=== PATIENT | female | born 1960 | race Caucasian/White ===

== ENCOUNTER 2018-11-02 14:19 | Inpatient (IN) | payer MEDICARE, OTHER ==
[~2018-11-02] VITALS: Ht 160 cm; Wt 101.7 kg
--- OUTSIDE RECORDS SUMMARY | 2018-11-02 14:21 | XMS REPORT ---
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 Allergies, Adverse Reactions, Alerts Allergy Name Allergy Type Status Severity Reaction(s) Onset Date Inactive Date Treating Clinician Comments Penicillins DA Active MO 2018-06-25 00:00:00 Medications This patient has no known medications.
[2018-11-02] MEDS ORDERED: SODIUM CHLORIDE 0.9% 1000ML 1,000 ML IV STA (14:22)
[2018-11-02] MEDS ORDERED: ONDANSETRON HCL INJ 2MG/ML 2ML 2 MG/ML VIAL IV NR (14:30)
[2018-11-02] MEDS ORDERED: MORPHINE SULFATE INJ 4 MG/ML INJ 1ML IV NR ×2 (14:30→16:31)
[2018-11-02 15:11] LABS: BASOPHILS % 0.3 % (0.0-1.0); EOSINOPHILS % 0.2 % (0.0-6.0); HEMATOCRIT 41.6 % (34.2-44.1); HEMOGLOBIN 14.3 g/dL (12.0-16.0); LYMPHOCYTES # (AUTO) 2.8 (1.0-3.2); MEAN CORPUSCULAR HEMOGLOBIN 30.6 pg (28-32); MEAN CORPUSCULAR HGB CONC 34.4 g/dL (31-35); MEAN CORPUSCULAR VOLUME 89.1 fL (81-99); MONOCYTES # (AUTO) 1.1 (0.2-0.8); MONOCYTES % 8.8 % (4.4-11.3); NEUTROPHILS # (AUTO) 8.8 (2.1-6.9); NEUTROPHILS % 68.2 % (38.7-80.0); PLATELET COUNT 214 x10e3/uL (140-360); RED BLOOD COUNT 4.67 x10e6/uL (3.6-5.1); RED CELL DISTRIBUTION WIDTH 12.7 % (11.7-14.4)
[2018-11-02 15:28] LABS: INR 0.91; PROTHROMBIN TIME 13.1 seconds (11.9-14.5)
[2018-11-02 15:29] LABS: PARTIAL THROMBOPLASTIN TIME 30.2 seconds (23.8-35.5)
[2018-11-02 15:44] LABS: BILIRUBIN,URINE NEGATIVE (NEGATIVE); CLARITY,URINE CLEAR (CLEAR); COLOR,URINE YELLOW (YELLOW); KETONES,URINE NEGATIVE (NEGATIVE); LEUKOCYTE ESTERASE ,URINE NEGATIVE (NEGATIVE); NITRITE,URINE NEGATIVE (NEGATIVE); PROTEIN,URINE DIPSTICK NEGATIVE (NEGATIVE); URINE UROBILINOGEN 0.2 mg/dL (0.2 - 1)
[2018-11-02 15:45] LABS: RBC,URINE 0-5 /HPF (0-5)
[2018-11-02 15:52] LABS: ALANINE AMINOTRANSFERASE 52 IU/L (0-55); ALBUMIN 4.3 g/dL (3.5-5.0); ALBUMIN/GLOBULIN RATIO 1.3 (0.8-2.0); ALKALINE PHOSPHATASE 66 IU/L (40-150); BLOOD UREA NITROGEN 9 mg/dL (7-26); BUN/CREATININE RATIO 11 (6-25); CALCIUM 9.7 mg/dL (8.4-10.2); CARBON DIOXIDE 21 mmol/L (22-29); CHLORIDE 108 mmol/L (98-107); CREATININE, SERUM 0.83 mg/dL (0.57-1.11); EST GLOMERULAR FILTRATION RATE > 60 ML/MIN (60-); GLUCOSE 113 mg/dL (74-118); SODIUM 141 mmol/L (136-145)
--- NOTE | 2018-11-02 17:08 | Diagnostic Imaging Report ---
Exam: Left hip radiographs-2 views; AP radiograph of the pelvis; left femur radiographs-4 views History: Status post fall with left hip pain. Comparison: None. Findings: There is a displaced left proximal femoral subcapital fracture. There is approximately 1.1 cm of maximal displacement. There is apex lateral angulation. No definite intra-articular extension. Radiographs of the left distal femur are suboptimal without true lateral radiograph secondary to limited patient mobility. In particular, femoral condyles are not well evaluated. The right proximal femur appears unremarkable. No evidence of additional displaced fracture within the pelvis. Bowel gas partially appears visualization of the sacrum. Partially seen lumbar spine fixation hardware. Surgical clips project over the lower midline abdomen. Impression: Displaced, angulated left proximal femoral subcapital fracture. CT is suggested for further evaluation. Radiographs of the left distal femur are suboptimal without true lateral radiograph secondary to limited patient mobility. The femoral condyles are not well evaluated. This could be evaluated on subsequent CT or with knee radiographs. Signed by: Dr. Jesús Combs MD on 11/02/2018 5:05 PM
[2018-11-02] MEDS ORDERED: SODIUM CHLORIDE 0.9% 1000ML 1,000 ML IV SCH (17:23)
[2018-11-02] MEDS ORDERED: ENOXAPARIN SOD INJ 40 MG/0.4 ML SYR SC NR (17:30)
[2018-11-02] MEDS ORDERED: ONDANSETRON HCL INJ 2MG/ML 2ML 2 MG/ML VIAL IV PRN (17:30)
[2018-11-02] MEDS: HYDROMORPHONE 2MG/ML 2 MG/ML ML IV PRN ×2 (18:12→21:20)
[2018-11-02 20:00] VITALS: BP 131/80
[2018-11-02] MEDS ORDERED: PROZAC20 MG PO (22:24)
[2018-11-02 22:35] VITALS: BP 131/80
[2018-11-02] MEDS: ACETAMINOPHEN 325 MG TAB PO PRN (23:04)
[2018-11-03] VITALS (7 sets, daily range): BP systolic 100–133; BP diastolic 63–90
[2018-11-03] MEDS: HYDROMORPHONE 2MG/ML 2 MG/ML ML IV PRN ×4 (00:34→16:15)
[2018-11-03] MEDS: ACETAMINOPHEN 325 MG TAB PO PRN (05:05)
[2018-11-03 05:36] LABS: BASOPHILS % 0.4 % (0.0-1.0); EOSINOPHILS # (AUTO) 0.2 (0.0-0.4); EOSINOPHILS % 2.2 % (0.0-6.0); HEMOGLOBIN 12.9 g/dL (12.0-16.0); LYMPHOCYTES # (AUTO) 2.8 (1.0-3.2); LYMPHOCYTES % 30.1 % (18.0-39.1); MEAN CORPUSCULAR HEMOGLOBIN 29.9 pg (28-32); MEAN CORPUSCULAR HGB CONC 32.3 g/dL (31-35); MEAN CORPUSCULAR VOLUME 92.6 fL (81-99); MONOCYTES # (AUTO) 1.1 (0.2-0.8); NEUTROPHILS % 54.9 % (38.7-80.0); PLATELET COUNT 179 x10e3/uL (140-360); RED BLOOD COUNT 4.32 x10e6/uL (3.6-5.1); RED CELL DISTRIBUTION WIDTH 12.8 % (11.7-14.4)
[2018-11-03 05:57] LABS: INR 0.97; PROTHROMBIN TIME 13.8 seconds (11.9-14.5)
[2018-11-03 06:00] LABS: BLOOD UREA NITROGEN 14 mg/dL (7-26); BUN/CREATININE RATIO 15 (6-25); CALCIUM 9.2 mg/dL (8.4-10.2); CARBON DIOXIDE 26 mmol/L (22-29); CHLORIDE 103 mmol/L (98-107); CREATININE, SERUM 0.95 mg/dL (0.57-1.11); EST GLOMERULAR FILTRATION RATE > 60 ML/MIN (60-); GLUCOSE 120 mg/dL (74-118); SODIUM 136 mmol/L (136-145)
[2018-11-03 06:04] LABS: PARTIAL THROMBOPLASTIN TIME 32.2 seconds (23.8-35.5)
[2018-11-03] MEDS ORDERED: VANCOMYCIN 1GM/NS 250 ML 250 ML IV ONE (08:00)
[2018-11-03] MEDS ORDERED: HYDRALAZINE HCL 20 MG/ML VIAL IV PRN (08:15)
[2018-11-03] MEDS ORDERED: ACETAMINOPHEN 325 MG TAB PO PRN ×2 (08:15→12:30)
[2018-11-03] MEDS ORDERED: ZOLPIDEM TARTRATE 5 MG TAB PO PRN ×2 (08:45→12:15)
[2018-11-03] MEDS ORDERED: BUPIVACAINE 7.5MG/ML /DEXTROSE 82.5MG/ML 2 ML AMP INJ ONE (08:58)
[2018-11-03] MEDS ORDERED: ROPIVACAINE 246.25 MG, EPINEPHRINE HCL 1:1000 1ML 0.5 MG, CLONIDINE HCL 0.08 MG, KETORO... INJ ONE ×5 (09:00)
--- NOTE | 2018-11-03 10:04 | NUR ---
EDUCATED ABOUT IMM, SIGNED, FILED IN CHART, WITH COPY LEFT WITH FAMILY AT BEDSIDE.
[2018-11-03] MEDS ORDERED: VANCOMYCIN HCL 500 MG ONE (10:22)
[2018-11-03] MEDS ORDERED: BACITRACIN 50,000 UNIT VIAL ONE (10:23)
[2018-11-03] MEDS ORDERED: TRANEXAMIC ACID 1,000 MG/10 ML ML ONE (10:23)
[2018-11-03] MEDS ORDERED: SODIUM CHLORIDE 0.9% 500ML 500 ML ONE (10:31)
[2018-11-03] MEDS ORDERED: SODIUM CHLORIDE 0.9% 1000ML 1,000 ML IV SCH (12:04)
[2018-11-03] MEDS ORDERED: ACETAMINOPHEN 650 MG SUPP PR PRN ×2 (12:15→12:30)
[2018-11-03] MEDS ORDERED: DOCUSATE SODIUM 100 MG CAP PO PRN (12:15)
[2018-11-03] MEDS ORDERED: DIPHENHYDRAMINE HCL INJ 50 MG/ML VIAL IM/IV PRN (12:15)
[2018-11-03] MEDS ORDERED: KETOROLAC TROMETHAMINE 30 MG/ML VIAL IV PRN (12:15)
[2018-11-03] MEDS ORDERED: VANCOMYCIN 1GM/NS 250 ML 250 ML IV SCH (12:15)
[2018-11-03] MEDS ORDERED: HYDROCODONE/APAP 7.5MG-325MG 1 EA TAB PO PRN (12:15)
[2018-11-03] MEDS ORDERED: PROMETHAZINE HCL (IM) 25 MG/ML VIAL INJ PRN (12:15)
[2018-11-03] MEDS ORDERED: FENTANYL CITRATE/PF 100MCG/2 ML INJ ONE ×2 (13:08→18:37)
--- NOTE | 2018-11-03 13:33 | Consultation ---
DATE OF CONSULTATION: 11/03/2018 CHIEF COMPLAINT: Left hip pain. HISTORY OF PRESENT ILLNESS: This patient is a 58-year-old female with a significant history of morbid obesity, who fell in her home yesterday. She states she developed instant left hip pain and was unable to get up and bear weight on the left leg. She was brought into the [facility] ER and was noted to have a left hip fracture and thus Orthopedics was consulted. The patient's primary history is significant for depression and chronic pain. PAST SURGICAL HISTORY: Multilevel lumbar fusion, carpal tunnel release, right knee scope, and tubal ligation. ALLERGIES: PENICILLIN. MEDICATIONS: See NOV. PHYSICAL EXAMINATION: GENERAL: This is a morbidly obese female with a BMI of almost 40. She is awake, alert, and oriented appropriately. She is in no apparent distress. EXTREMITIES: Her left lower extremity is in Sosa's traction. This is shortened and externally rotated. She has pain with any attempts of passive range of motion at the left hip. There is no bruising or skin changes noted on the left outer thigh. There is a faint surgical scar from a previous iliac crest bone harvest. Distal motor exam at the left ankle and foot are intact. Distal neurovascular exam is normal. IMAGING DATA: X-rays of the left hip were obtained and show an angulated displaced left femoral neck fracture. ASSESSMENT AND PLAN: This is a 58-year-old female with a left femoral neck fracture. The findings and options were discussed with the patient. Definitive treatment would be a left total hip replacement. The risks and benefits of the surgery were explained. The increased risks given her morbid obesity were discussed. The patient states she understands the plan and wishes to proceed. We will attempt to get her on the surgery schedule later today. Thank you for the consultation. Dictated by Yury Beck PA-C MD RADAMES Cook/SOPHIA /[id number]
--- NOTE | 2018-11-03 13:40 | NUR ---
Received patient from PACU S/P left hip replacement, patient is awake, alert and oriented x3, she has dressing to left hip. applied bilateral foot scd's, no s/s of distress patient is verbalizing needs, belongings, and call light within reach. Bed in low position, breaks on.
--- NOTE | 2018-11-03 13:41 | NUR ---
PT BACK FROM SURGERY AT THIS TIME, DRESSING NOTED TO L HIP DRY AND INTACT ICE PACK TO AREA. NO RESP DISTRESS NOTED NO COMPLAINS CALL LIGHT WITHIN REACH SIDE RAILS UPX 2 WILL CONTINUE TO MONITOR
--- NOTE | 2018-11-03 15:18 | Diagnostic Imaging Report ---
Exam: AP pelvis, portable dated 11/03/2018 at 1:33 PM History: Hip replacement Comparison: None available Findings: Single view shows a left total hip replacement. Position of the acetabular cup and the femoral shaft appears good. A portion of the inferior aspect of the metallic shaft is not visualized due to positioning. Superior aspect of both iliac bones are not visualized. There are surgical megan noted. Impression: Status post left hip replacement. Signed by: Dr. Stephen Parkinson DO on 11/03/2018 3:15 PM
[2018-11-03] MEDS: ONDANSETRON HCL INJ 2MG/ML 2ML 2 MG/ML VIAL IV PRN (16:15)
[2018-11-03] MEDS: CELECOXIB 100 MG CAP PO SCH (17:10)
[2018-11-03] MEDS: ASPIRIN 325 MG TAB PO SCH (17:10)
[2018-11-03] MEDS: ENOXAPARIN SOD INJ 40 MG/0.4 ML SYR SC SCH (17:10)
[2018-11-03] MEDS: FAMOTIDINE 20 MG/2 ML VIAL IV SCH (17:14)
--- NOTE | 2018-11-03 18:35 | Operative Report ---
DATE OF PROCEDURE: 11/03/2018 SURGEON: Bruce Bill MD SENIOR RESEARCH PROJECT MANAGER: Yury Beck PA-C PREOPERATIVE DIAGNOSIS: Left femoral neck fracture. POSTOPERATIVE DIAGNOSIS: Left femoral neck fracture. PROCEDURE: Left total hip arthroplasty. INDICATIONS: The patient is a 58-year-old lady, who is morbidly deconditioned and fell yesterday. She sustained a completely displaced fracture of her left femoral neck. The findings and options have been discussed. She was previously ambulatory with a cane. We have recommended left total hip replacements. The risks and benefits of the procedure have been discussed. The added potential risks due to her physical body habitus and deconditioning were explained. She is also a smoker. She states she understands and wishes to proceed. DESCRIPTION OF PROCEDURE: The patient was brought to the operating room and placed under general anesthetic. She received prophylactic antibiotics and tranexamic acid in the holding area. She was positioned in the right lateral decubitus position. Her left hip was prepped and draped in a sterile manner. A preoperative time-out was performed. A posterior approach was made to the left hip. Hemostasis was obtained with electrocautery. A deep self-retaining Charnley retractor was placed. The posterior capsule was carefully exposed. Hemostasis was obtained with electrocautery. The vessels were ligated. The posterior capsule was released and the hip was brought up into fixation and internal rotation. An oscillating saw was used to resect the remainder of the femoral neck at the base of the fracture. Acetabular retractors were placed. A cork screw instrument was used to remove the femoral head. The socket was further exposed. The remnant of the labrum was excised with a long handle knife. The true floor of the acetabulum was established with a 46 mm reamer. The socket was then sequentially reamed to 51 mm. There was bleeding hemispherical cancellous bone. The hip was thoroughly irrigated with a shower tip pulsatile lavage on a number of occasions during this portion of the case. The wound was also intermittently sprayed with polymyxin and vancomycin throughout the case. Abhi [employer] 52 mm outer diameter OsseoTi socket was then impacted into place. Fixation was augmented with a single 25 mm cancellous screw placed into the ilium. A highly crosslinked polyethylene liner with a 36 mm inner diameter was then seated. Care was taken to make sure that there was no evidence of soft tissue interposition. The socked was packed with moistly soaked lap sponge and attention was directed towards the proximal femur. A box cutting osteotome and taper pin reamer were used to establish entry to the femoral canal. The Taperloc broaches were impacted. A size 12 stem had good canal fill and rotational stability for trial reduction. A standard 36 mm head provided appropriate soft tissue balancing, confucianism of the limb length and stability to a full arc of motion. The trial implants were removed. A 100 mL premixed pericapsular YOAN injection was placed into the surrounding soft tissue. The implants were seated and a final reduction was performed. The posterior capsule was carefully repaired using interrupted #2 Ethibond. The gluteal fascia was closed with an interrupted #2 Ethibond. The skin was closed with subcuticular Vicryl and megan. A sterile bandage was applied. She was returned to the supine position, extubated, and transported to the recovery room in stable condition. Estimated blood loss was about 125 mL. All needle and sponge counts were correct. Bruce Bill MD DR/SOPHIA /[id number]
[2018-11-03] MEDS ORDERED: MIDAZOLAM HCL 2 MG/2 ML VIAL ONE (18:37)
[2018-11-03] MEDS ORDERED: ROCURONIUM BROMIDE 10 MG/ML 5ML VIAL ONE (19:14)
[2018-11-03] MEDS ORDERED: PROPOFOL IV EMULSION 10 MG/ML 20 ML VIAL ONE (19:14)
[2018-11-03] MEDS ORDERED: NEOSTIGMINE 5 MG/5ML SYR ONE (19:14)
[2018-11-03] MEDS ORDERED: DEXAMETHASONE SOD PHOS INJ 4 MG/ML VIAL ONE (19:14)
[2018-11-03] MEDS ORDERED: GLYCOPYRROLATE INJ 1MG/ 5 ML SYR ONE (19:14)
[2018-11-03] MEDS ORDERED: ONDANSETRON HCL INJ 2MG/ML 2ML 2 MG/ML VIAL ONE (19:14)
[2018-11-03] MEDS ORDERED: LIDOCAINE HCL 2% LOCAL INJ 5 ML SDV VIAL INJ ONE (19:14)
[2018-11-03] MEDS ORDERED: PHENYLEPHRINE HCL 1% 10 MG/ML VIAL ONE (19:14)
[2018-11-03] MEDS ORDERED: SEVOFLURANE INHAL SOLN 250 ML PEN BTL ONE (19:14)
[2018-11-03] MEDS: ACETAMINOPHEN 1000 MG/100 ML IV SCH (19:18)
[2018-11-03] MEDS: VANCOMYCIN 1GM/NS 250 ML 250 ML IV SCH (20:45)
[2018-11-04 00:13] VITALS: BP 95/64
[2018-11-04] MEDS: ACETAMINOPHEN 1000 MG/100 ML IV SCH ×3 (00:25→12:00)
[2018-11-04] MEDS: HYDROMORPHONE 2MG/ML 2 MG/ML ML IV PRN ×2 (03:40→09:30)
[2018-11-04 03:45] LABS: BASOPHILS % 0.2 % (0.0-1.0); EOSINOPHILS % 0.1 % (0.0-6.0); HEMOGLOBIN 10.2 g/dL (12.0-16.0); LYMPHOCYTES # (AUTO) 1.6 (1.0-3.2); MEAN CORPUSCULAR HEMOGLOBIN 30.5 pg (28-32); MEAN CORPUSCULAR HGB CONC 32.9 g/dL (31-35); MEAN CORPUSCULAR VOLUME 92.8 fL (81-99); MONOCYTES # (AUTO) 1.1 (0.2-0.8); MONOCYTES % 10.2 % (4.4-11.3); NEUTROPHILS # (AUTO) 8.4 (2.1-6.9); NEUTROPHILS % 75.1 % (38.7-80.0); PLATELET COUNT 147 x10e3/uL (140-360); RED BLOOD COUNT 3.34 x10e6/uL (3.6-5.1); RED CELL DISTRIBUTION WIDTH 12.4 % (11.7-14.4)
[2018-11-04 03:46] VITALS: BP 133/82
[2018-11-04 04:06] LABS: ANION GAP 11.9 mmol/L (8-16); BLOOD UREA NITROGEN 16 mg/dL (7-26); BUN/CREATININE RATIO 17 (6-25); CALCIUM 8.5 mg/dL (8.4-10.2); CARBON DIOXIDE 21 mmol/L (22-29); CHLORIDE 106 mmol/L (98-107); CREATININE, SERUM 0.93 mg/dL (0.57-1.11); EST GLOMERULAR FILTRATION RATE > 60 ML/MIN (60-); GLUCOSE 161 mg/dL (74-118); MAGNESIUM 2.1 MG/DL (1.3-2.1); POTASSIUM 3.9 mmol/L (3.5-5.1); SODIUM 135 mmol/L (136-145)
[2018-11-04] MEDS: FAMOTIDINE 20 MG/2 ML VIAL IV SCH ×2 (08:13→16:51)
[2018-11-04 09:01] VITALS: BP 133/82
[2018-11-04] MEDS: VANCOMYCIN 1GM/NS 250 ML 250 ML IV SCH (09:30)
[2018-11-04] MEDS: ASPIRIN 325 MG TAB PO SCH ×2 (09:30→16:42)
[2018-11-04] MEDS: CELECOXIB 100 MG CAP PO SCH ×2 (09:30→16:43)
[2018-11-04] MEDS: ONDANSETRON HCL INJ 2MG/ML 2ML 2 MG/ML VIAL IV PRN (09:30)
[2018-11-04] MEDS ORDERED: ACETAMINOPHEN 1000 MG/100 ML IV PRN (12:15)
[2018-11-04] MEDS: HYDROCODONE/APAP 5MG-325MG TAB PO PRN ×2 (12:23→16:25)
--- NOTE | 2018-11-04 12:44 | NUR ---
ORDERS RECEIVED FOR HOME PT/SN. MET W THE PT AT THE BEDSIDE. PROVIDED CHOICE TO PT. PT REQUESTED AN IN NETWORK PROVIDER W HER INSURANCE. REFERRAL WAS FAXED TO [employer] @ OFF: [phone] / FAX: [phone]. ORDER RECEIVED FOR RW. WILL PROVIDE RW TO PT.
--- NOTE | 2018-11-04 14:00 | NUR ---
HOME HEALTH DISCHARGE NOTE PATIENT ADDRESS WHERE SERVICE WILL BE RECEIVED: [address] [place], [address] PATIENT CONTACT NUMBER: [phone] NAME OF HOME HEALTH COMPANY: [employer] TELEPHONE/FAX NUMBER OF COMPANY: OFF: [phone] / FAX: [phone] ADDRESS OF COMPANY: [address] [place] [address] [id number], [place] [address] SERVICES TO RECEIVE: SN / PT ANTICIPATED DATE SERVICES WILL BEGIN: 11/05/2018 Please call the company above if you have not received a call to schedule a home visit within 24 hours of discharge.
[2018-11-04 14:23] VITALS: BP 109/79
[2018-11-04] MEDS: ENOXAPARIN SOD INJ 40 MG/0.4 ML SYR SC SCH (16:43)
[2018-11-04 16:51] VITALS: BP 107/95
--- NOTE | 2018-11-04 19:27 | NUR ---
Patient discharged home, verbalized understanding of d/c instructions. Escorted to front of hospital via wheel chair.to meet
== END 2018-11-04 19:26 | disposition home or self-care (01) | DRG 470 ==
LOC: ER 14:19 → ERHOLD 17:46 → IMCU 19:53
PROVIDERS: ADMIT Internal Medicine; ATTEND Internal Medicine
PROC: 0SRB049 Replacement of Left Hip Joint with Ceramic on Polyethylene Synthetic Substitute, Cemented, Open Approach (ICD-10-PCS; principal; 2018-11-03 10:48)
DX: S72.012A Unspecified intracapsular fracture of left femur, initial encounter for closed fracture (principal); Z98.1 Arthrodesis status; E66.01 Morbid (severe) obesity due to excess calories; Z68.39 Body mass index [BMI] 39.0-39.9, adult; W18.31XA Fall on same level due to stepping on an object, initial encounter; F32.9 Major depressive disorder, single episode, unspecified; G47.00 Insomnia, unspecified; J44.9 Chronic obstructive pulmonary disease, unspecified; G89.29 Other chronic pain; Y93.9 Activity, unspecified; Y92.003 Bedroom of unspecified non-institutional (private) residence as the place of occurrence of the external cause; S00.12XA Contusion of left eyelid and periocular area, initial encounter
CPT/HCPCS: 36415; 51700; 72170; 80048; 80053; 81001; 83735; 83880; 85025; 85610; 85730; 86850; 86900; 87086; 93005; 97139; 99284; C1713; J0171; J1100; J1650; J1885; J2001; J2250; J2270; J2370; J2405; J2795; J3370; J7030; J7040

== ENCOUNTER 2021-05-22 13:32 | Emergency (ER) | payer MEDICARE, OTHER ==
[~2021-05-22] VITALS: Ht 160 cm; Wt 101.6 kg
[~2021-05-22 13:32] MED LIST: PROZAC20 MG PO
[2021-05-22] MEDS ORDERED: IBUPROFEN600 MG PO (14:39)
[2021-05-22] MEDS ORDERED: ULTRAM50 MG PO (14:39)
== END 2021-05-22 14:56 | disposition home or self-care (01) ==
LOC: ER 13:37
DX: M25.551 Pain in right hip (principal); Z96.642 Presence of left artificial hip joint; M89.8X8 Other specified disorders of bone, other site; F32.9 Major depressive disorder, single episode, unspecified; F17.210 Nicotine dependence, cigarettes, uncomplicated
CPT/HCPCS: 99282

== ENCOUNTER 2021-06-19 08:13 | Observation (INO) | payer MEDICARE, OTHER ==
[2021-06-16 09:17] LABS: BASOPHILS % 0.7 % (0.0-1.0); EOSINOPHILS # (AUTO) 0.1 (0.0-0.4); EOSINOPHILS % 2.3 % (0.0-6.0); HEMATOCRIT 39.7 % (34.2-44.1); HEMOGLOBIN 12.8 g/dL (12.0-16.0); LYMPHOCYTES # (AUTO) 2.3 (1.0-3.2); LYMPHOCYTES % 37.9 % (18.0-39.1); MEAN CORPUSCULAR HGB CONC 32.2 g/dL (31-35); MEAN CORPUSCULAR VOLUME 96.1 fL (81-99); MONOCYTES # (AUTO) 0.6 (0.2-0.8); MONOCYTES % 9.5 % (4.4-11.3); NEUTROPHILS % 49.3 % (38.7-80.0); PLATELET COUNT 164 x10e3/uL (140-360); RED BLOOD COUNT 4.13 x10e6/uL (3.6-5.1); RED CELL DISTRIBUTION WIDTH 12.6 % (11.7-14.4)
[2021-06-16 09:53] LABS: ANION GAP 14.9 mmol/L (8-16); CREATININE, SERUM 0.89 mg/dL (0.57-1.11); POTASSIUM 3.9 mmol/L (3.5-5.1)
[~2021-06-19] VITALS: Ht 157.5 cm; Wt 103.0 kg
[~2021-06-19 08:13] MED LIST changes: +HYDROCHLOROTHIA25 MG PO; +IBUPROFEN600 MG PO; +LOSARTAN POTASS25 MG PO; +ROPIVACAINE 246.25 MG, EPINEPHRINE HCL 1:1000 1ML 0.5 MG, CLONIDINE HCL 0.08 MG, KETORO... INJ ONE; +SODIUM CHLORIDE 0.9% 500ML 500 ML ONE; +TRELEGY ELLIPT1 EACH INH; +ULTRAM50 MG PO; +Vancomycin IV 1,000 MG ONE
[2021-06-19] MEDS ORDERED: GABAPENTIN 300 MG CAP ONE (08:14)
[2021-06-19] MEDS ORDERED: Vancomycin IV 1 GM VIAL ONE (08:14)
[2021-06-19] MEDS ORDERED: TRANEXAMIC ACID 1,000 MG/10 ML ML ONE (08:14)
[2021-06-19] MEDS ORDERED: DEXAMETHASONE SOD PHOS 10 MG/1 ML VIAL ONE (08:14)
[2021-06-19] MEDS ORDERED: CELECOXIB 200 MG CAP ONE (08:14)
[2021-06-19] MEDS ORDERED: SODIUM CHLORIDE 0.9% 250ML 250 ML ONE (08:15)
[2021-06-19] MEDS ORDERED: ONDANSETRON HCL INJ 2MG/ML 2ML 2 MG/ML VIAL IV PRN (11:15)
[2021-06-19] MEDS ORDERED: HYDROCODONE/APAP 7.5MG-325MG 1 EA TAB PO PRN (11:15)
[2021-06-19] MEDS ORDERED: HYDROCODONE/APAP 5MG-325MG TAB PO PRN (11:15)
[2021-06-19] MEDS ORDERED: KETOROLAC TROMETHAMINE 30 MG/ML VIAL IV PRN (11:15)
[2021-06-19] MEDS ORDERED: ACETAMINOPHEN 1000 MG/100 ML IV PRN (11:15)
[2021-06-19] MEDS ORDERED: ACETAMINOPHEN 650 MG SUPP PR PRN (11:15)
[2021-06-19] MEDS ORDERED: DOCUSATE SODIUM 100 MG CAP PO PRN (11:15)
[2021-06-19] MEDS ORDERED: DIPHENHYDRAMINE HCL INJ 50 MG/ML VIAL IV PRN (11:15)
[2021-06-19] MEDS ORDERED: SUGAMMADEX SODIUM 200 MG/2 ML VIAL IV ONE (11:22)
[2021-06-19] MEDS ORDERED: HYDROMORPHONE 1MG/1ML INJ ONE (12:13)
[2021-06-19] MEDS ORDERED: SODIUM CHLORIDE 0.9% 1000ML 1,000 ML IV SCH (16:00)
[2021-06-19] MEDS ORDERED: CELECOXIB 200 MG CAP PO SCH (17:00)
[2021-06-19 17:30] VITALS: BP 144/86
[2021-06-19] MEDS ORDERED: ASPIRIN 325 MG TAB PO SCH (20:00)
[2021-06-19] MEDS ORDERED: Vancomycin IV 1 GM in SODIUM CHLORIDE 0.9% 250ML 250 ML IV SCH (20:30)
[2021-06-19] MEDS ORDERED: ZOLPIDEM TARTRATE 5 MG TAB PO PRN (21:00)
[2021-06-20] MEDS ORDERED: LOSARTAN POTASSIUM 25 MG TAB PO SCH (09:00)
[2021-06-20] MEDS ORDERED: HYDROCHLOROTHIAZIDE 25 MG TAB PO SCH (09:00)
[2021-06-20] MEDS ORDERED: FLUOXETINE HCL 20 MG CAP PO SCH (09:00)
== END 2021-06-19 19:55 | disposition home or self-care (01) ==
LOC: OR 08:13 → PACU V 11:28 → MED/SURG 15:55
PROVIDERS: ADMIT Specialist; ATTEND Specialist
DX: M16.11 Unilateral primary osteoarthritis, right hip (principal); K21.9 Gastro-esophageal reflux disease without esophagitis; I10 Essential (primary) hypertension; Z88.0 Allergy status to penicillin; E78.00 Pure hypercholesterolemia, unspecified; Z96.642 Presence of left artificial hip joint; E66.9 Obesity, unspecified; Z68.41 Body mass index [BMI] 40.0-44.9, adult; Z01.810 Encounter for preprocedural cardiovascular examination; Z01.812 Encounter for preprocedural laboratory examination; Z86.16 Personal history of COVID-19
CPT/HCPCS: 27130; 36415; 71046; 72170; 80048; 85025; 86850; 86900; 86920; 93005; 97110; 97116; 97161; 97530; G0378; J0171; J1100; J1170; J1885; J2795; J3370 ×2; J7030; J7040; J7050

== ENCOUNTER 2021-08-16 15:27 | Emergency (ER) | payer MEDICARE, OTHER ==
[~2021-08-16] VITALS: Ht 157.5 cm; Wt 103.0 kg
[~2021-08-16 15:27] MED LIST changes: -ROPIVACAINE 246.25 MG, EPINEPHRINE HCL 1:1000 1ML 0.5 MG, CLONIDINE HCL 0.08 MG, KETORO... INJ ONE; -SODIUM CHLORIDE 0.9% 500ML 500 ML ONE; -Vancomycin IV 1,000 MG ONE
== END 2021-08-16 17:46 | disposition home or self-care (01) ==
LOC: ER 16:24
DX: M25.562 Pain in left knee (principal); M25.561 Pain in right knee; W18.39XA Other fall on same level, initial encounter; Y93.01 Activity, walking, marching and hiking; I10 Essential (primary) hypertension; E78.5 Hyperlipidemia, unspecified; K21.9 Gastro-esophageal reflux disease without esophagitis; F41.9 Anxiety disorder, unspecified; Z86.16 Personal history of COVID-19
CPT/HCPCS: 99284

== ENCOUNTER 2022-04-26 13:07 | Emergency (ER) | payer MEDICARE, OTHER ==
[~2022-04-26] VITALS: Ht 157.5 cm; Wt 103.0 kg
[2022-04-26] MEDS ORDERED: FAMOTIDINE 20 MG/2 ML VIAL IV STA (14:09)
[2022-04-26] MEDS ORDERED: KETOROLAC TROMETHAMINE 30 MG/ML VIAL IV STA (14:09)
[2022-04-26] MEDS ORDERED: ONDANSETRON HCL INJ 2MG/ML 2ML 2 MG/ML VIAL IV STA (14:09)
[2022-04-26 14:22] LABS: BASOPHILS # (AUTO) 0.1 (0.0-0.1); BASOPHILS % 0.5 % (0.0-1.0); EOSINOPHILS # (AUTO) 0.1 (0.0-0.4); EOSINOPHILS % 0.9 % (0.0-6.0); HEMATOCRIT 41.8 % (34.2-44.1); HEMOGLOBIN 14.3 g/dL (12.0-16.0); LYMPHOCYTES # (AUTO) 2.9 (1.0-3.2); LYMPHOCYTES % 29.1 % (18.0-39.1); MEAN CORPUSCULAR HEMOGLOBIN 31.4 pg (28-32); MEAN CORPUSCULAR HGB CONC 34.2 g/dL (31-35); MEAN CORPUSCULAR VOLUME 91.7 fL (81-99); MONOCYTES # (AUTO) 0.8 (0.2-0.8); MONOCYTES % 7.6 % (4.4-11.3); NEUTROPHILS # (AUTO) 6.1 (2.1-6.9); NEUTROPHILS % 61.6 % (38.7-80.0); PLATELET COUNT 174 x10e3/uL (140-360); RED BLOOD COUNT 4.56 x10e6/uL (3.6-5.1); RED CELL DISTRIBUTION WIDTH 12.4 % (11.7-14.4)
[2022-04-26 14:36] LABS: ANION GAP 15.1 mmol/L (8-16); CALCIUM 9.3 mg/dL (8.4-10.2); CREATININE, SERUM 0.78 mg/dL (0.57-1.11); POTASSIUM 4.1 mmol/L (3.5-5.1)
[2022-04-26 14:42] LABS: CLARITY,URINE HAZY (CLEAR); COLOR,URINE YELLOW (YELLOW); KETONES,URINE NEGATIVE (NEGATIVE); LEUKOCYTE ESTERASE ,URINE MODERATE (NEGATIVE); NITRITE,URINE NEGATIVE (NEGATIVE); PROTEIN,URINE DIPSTICK NEGATIVE (NEGATIVE); URINE UROBILINOGEN 0.2 mg/dL (0.2 - 1)
[2022-04-26 14:50] LABS: ALBUMIN 3.7 g/dL (3.5-5.0); BILIRUBIN,DIRECT 0.2 mg/dL (0.0-0.5)
[2022-04-26 14:52] LABS: AMORPHOUS SEDIMENT,URINE MANY (FEW); BACTERIA,URINE MODERATE /HPF; EPITHELIAL CELLS,URINE MANY /LPF
[2022-04-26] MEDS ORDERED: IOPAMIDOL 300MG/ML 100 ML INFUS..BTL IV ONE (15:09)
[2022-04-26] MEDS ORDERED: HEARTBURN RELIE10 MG PO ×2 (15:54→15:55)
[2022-04-26] MEDS ORDERED: IBUPROFEN600 MG PO (15:55)
[2022-04-26] MEDS ORDERED: ONDANSETRON ODT4 MG PO (15:56)
== END 2022-04-26 16:00 | disposition home or self-care (01) ==
LOC: ER 13:28
DX: R10.30 Lower abdominal pain, unspecified (principal); R91.8 Other nonspecific abnormal finding of lung field; I10 Essential (primary) hypertension; E78.5 Hyperlipidemia, unspecified; F41.9 Anxiety disorder, unspecified; K21.9 Gastro-esophageal reflux disease without esophagitis
CPT/HCPCS: 36415; 74177; 80048; 80076; 81001; 83690; 84484; 85025; 93005; 99284; J1885; J2405; Q9967

== ENCOUNTER 2022-04-28 13:48 | Emergency (ER) | payer MEDICARE, OTHER ==
[~2022-04-28] VITALS: Ht 157.5 cm; Wt 103.0 kg
[~2022-04-28 13:48] MED LIST changes: +HEARTBURN RELIE10 MG PO; +ONDANSETRON ODT4 MG PO
== END 2022-04-28 15:29 | disposition home or self-care (01) ==
LOC: ER 14:00
DX: R10.30 Lower abdominal pain, unspecified (principal); N39.0 Urinary tract infection, site not specified
CPT/HCPCS: 99282

== ENCOUNTER 2022-04-30 18:41 | Inpatient (IN) | payer MEDICARE, OTHER ==
[~2022-04-30] VITALS: Ht 152.4 cm; Wt 103.0 kg
[2022-04-30] MEDS ORDERED: SODIUM CHLORIDE 0.9% 1000ML 1,000 ML IV STA ×2 (19:09→20:10)
[2022-04-30] MEDS ORDERED: ONDANSETRON HCL INJ 2MG/ML 2ML 2 MG/ML VIAL IV STA (19:09)
[2022-04-30 19:16] LABS: BASOPHILS % 0.4 % (0.0-1.0); EOSINOPHILS # (AUTO) 0.2 (0.0-0.4); EOSINOPHILS % 1.3 % (0.0-6.0); HEMATOCRIT 41.1 % (34.2-44.1); HEMOGLOBIN 13.9 g/dL (12.0-16.0); LYMPHOCYTES # (AUTO) 2.4 (1.0-3.2); LYMPHOCYTES % 20.9 % (18.0-39.1); MEAN CORPUSCULAR HEMOGLOBIN 31.3 pg (28-32); MEAN CORPUSCULAR HGB CONC 33.8 g/dL (31-35); MEAN CORPUSCULAR VOLUME 92.6 fL (81-99); MONOCYTES % 8.9 % (4.4-11.3); NEUTROPHILS # (AUTO) 7.7 (2.1-6.9); PLATELET COUNT 234 x10e3/uL (140-360); RED BLOOD COUNT 4.44 x10e6/uL (3.6-5.1); RED CELL DISTRIBUTION WIDTH 11.8 % (11.7-14.4)
[2022-04-30] MEDS ORDERED: ONDANSETRON HCL INJ 2MG/ML 2ML 2 MG/ML VIAL ONE (19:19)
[2022-04-30] MEDS ORDERED: SODIUM CHLORIDE 0.9% 1000ML 1,000 ML ONE (19:19)
[2022-04-30 19:37] LABS: ALBUMIN 3.7 g/dL (3.5-5.0); ALBUMIN/GLOBULIN RATIO 1.2 (0.8-2.0); ANION GAP 18.9 mmol/L (8-16); CALCIUM 9.1 mg/dL (8.4-10.2); CREATININE, SERUM 0.9 mg/dL (0.57-1.11)
[2022-04-30 19:43] LABS: CREATINE KINASE MB 5.1 ng/mL (0-5.0)
[2022-04-30 19:45] LABS: POTASSIUM 2.9 mmol/L (3.5-5.1)
[2022-04-30] MEDS ORDERED: POTASSIUM CHLORIDE 20MEQ/100ML 100 ML IV STA (19:46)
[2022-04-30] MEDS ORDERED: DICYCLOMINE HCL 20 MG/2 ML VIAL IM ONE (20:30)
[2022-04-30] MEDS ORDERED: IOPAMIDOL 370 MG/ML 100 ML INFUS..BTL INJ ONE (20:37)
[2022-04-30] MEDS ORDERED: METRONIDAZOLE 500MG/NS 100ML 100 ML IV SCH (21:45)
[2022-04-30] MEDS: Morphine 4mg INJECTION 4 MG/ML INJ IV PRN (22:00)
[2022-04-30] MEDS: METRONIDAZOLE 500MG/NS 100ML 100 ML IV SCH (22:00)
[2022-04-30] MEDS ORDERED: HYDRALAZINE HCL 20 MG/ML VIAL IV PRN (22:00)
[2022-04-30 22:22] LABS: CLARITY,URINE CLEAR (CLEAR); COLOR,URINE YELLOW (YELLOW); KETONES,URINE NEGATIVE (NEGATIVE); LEUKOCYTE ESTERASE ,URINE NEGATIVE (NEGATIVE); NITRITE,URINE NEGATIVE (NEGATIVE); PROTEIN,URINE DIPSTICK NEGATIVE (NEGATIVE); URINE UROBILINOGEN 0.2 mg/dL (0.2 - 1)
[2022-04-30 22:24] LABS: BACTERIA,URINE MODERATE /HPF; EPITHELIAL CELLS,URINE MODERATE /LPF; WBC,URINE (MAN) 0-5 /HPF (0-5)
[2022-04-30] MEDS: SODIUM CHLORIDE 0.9% 1000ML 1,000 ML IV SCH (23:42)
[2022-04-30 23:45] VITALS: BP 145/74
[2022-04-30] MEDS ORDERED: DICYCLOMINE HCL20 MG PO (23:56)
[2022-04-30] MEDS ORDERED: OMEPRAZOLE40 MG PO (23:59)
[2022-04-30] MEDS ORDERED: PRAVASTATIN SOD40 MG (23:59)
[2022-04-30] MEDS ORDERED: CIPRO500 MG PO (23:59)
[2022-05-01] VITALS (9 sets, daily range): BP systolic 116–158; BP diastolic 66–85
[2022-05-01 05:45] LABS: BASOPHILS # (AUTO) 0.1 (0.0-0.1); BASOPHILS % 0.4 % (0.0-1.0); EOSINOPHILS # (AUTO) 0.2 (0.0-0.4); EOSINOPHILS % 2.1 % (0.0-6.0); HEMATOCRIT 38.7 % (34.2-44.1); HEMOGLOBIN 12.8 g/dL (12.0-16.0); LYMPHOCYTES # (AUTO) 2.6 (1.0-3.2); LYMPHOCYTES % 23.4 % (18.0-39.1); MEAN CORPUSCULAR HGB CONC 33.1 g/dL (31-35); MEAN CORPUSCULAR VOLUME 93.7 fL (81-99); MONOCYTES % 8.8 % (4.4-11.3); NEUTROPHILS # (AUTO) 7.2 (2.1-6.9); NEUTROPHILS % 64.7 % (38.7-80.0); PLATELET COUNT 196 x10e3/uL (140-360); RED BLOOD COUNT 4.13 x10e6/uL (3.6-5.1); RED CELL DISTRIBUTION WIDTH 11.8 % (11.7-14.4)
[2022-05-01] MEDS: SODIUM CHLORIDE 0.9% 1000ML 1,000 ML IV SCH ×3 (05:45→21:45)
[2022-05-01 06:34] LABS: ALBUMIN 3.4 g/dL (3.5-5.0); ALBUMIN/GLOBULIN RATIO 1.3 (0.8-2.0); ANION GAP 14.8 mmol/L (8-16); CALCIUM 8.4 mg/dL (8.4-10.2); CREATININE, SERUM 0.84 mg/dL (0.57-1.11)
[2022-05-01 06:39] LABS: POTASSIUM 2.8 mmol/L (3.5-5.1)
[2022-05-01] MEDS ORDERED: POTASSIUM CHL 40 MEQ in SODIUM CHLORIDE 0.9% 250ML 250 ML IV ONE (07:00)
[2022-05-01] MEDS: METRONIDAZOLE 500MG/NS 100ML 100 ML IV SCH ×3 (10:00→20:44)
[2022-05-01] MEDS: Morphine 4mg INJECTION 4 MG/ML INJ IV PRN ×2 (10:47→15:42)
[2022-05-01] MEDS: ONDANSETRON HCL INJ 2MG/ML 2ML 2 MG/ML VIAL IV PRN ×2 (10:47→15:42)
[2022-05-01] MEDS ORDERED: FLUTICASONE/SALMETEROL 115/21 12 GM AERO IH SCH (11:30)
[2022-05-01] MEDS: ALBUTEROL/IPRATROPIUM 3 ML NEB NEB SCH ×2 (13:00→19:30)
[2022-05-01] MEDS: FLUTICASONE/SALMETEROL 115/21 12 GM AERO IH SCH (19:45)
[2022-05-01] MEDS: BISACODYL 10 MG SUPP PR SCH (20:45)
[2022-05-02] VITALS (8 sets, daily range): BP systolic 114–131; BP diastolic 60–79
[2022-05-02] MEDS: ALBUTEROL/IPRATROPIUM 3 ML NEB NEB SCH ×4 (00:20→19:00)
[2022-05-02] MEDS ORDERED: ACETAMINOPHEN 325 MG TAB PO PRN (03:00)
[2022-05-02 06:08] LABS: BASOPHILS % 0.4 % (0.0-1.0); EOSINOPHILS # (AUTO) 0.1 (0.0-0.4); HEMATOCRIT 34.3 % (34.2-44.1); HEMOGLOBIN 11.6 g/dL (12.0-16.0); LYMPHOCYTES # (AUTO) 1.2 (1.0-3.2); LYMPHOCYTES % 11.3 % (18.0-39.1); MEAN CORPUSCULAR HEMOGLOBIN 30.8 pg (28-32); MEAN CORPUSCULAR HGB CONC 33.8 g/dL (31-35); MONOCYTES # (AUTO) 0.9 (0.2-0.8); MONOCYTES % 8.7 % (4.4-11.3); NEUTROPHILS % 77.9 % (38.7-80.0); PLATELET COUNT 158 x10e3/uL (140-360); RED BLOOD COUNT 3.77 x10e6/uL (3.6-5.1)
[2022-05-02 06:29] LABS: ANION GAP 14.6 mmol/L (8-16); CALCIUM 8.1 mg/dL (8.4-10.2); CREATININE, SERUM 0.83 mg/dL (0.57-1.11)
[2022-05-02 06:34] LABS: POTASSIUM 2.6 mmol/L (3.5-5.1)
[2022-05-02] MEDS: FLUTICASONE/SALMETEROL 115/21 12 GM AERO IH SCH ×2 (06:42→20:05)
[2022-05-02] MEDS: SODIUM CHLORIDE 0.9% 1000ML 1,000 ML IV SCH (07:00)
[2022-05-02] MEDS ORDERED: POTASSIUM CHL IV PRN (07:15)
[2022-05-02] MEDS ORDERED: SODIUM CHLORIDE 0.9% IV PRN (07:15)
[2022-05-02] MEDS: BISACODYL 10 MG SUPP PR SCH ×2 (08:36→21:27)
[2022-05-02] MEDS: METRONIDAZOLE 500MG/NS 100ML 100 ML IV SCH (09:49)
[2022-05-02] MEDS: Morphine 4mg INJECTION 4 MG/ML INJ IV PRN (10:08)
[2022-05-02] MEDS: ONDANSETRON HCL INJ 2MG/ML 2ML 2 MG/ML VIAL IV PRN (10:08)
[2022-05-02] MEDS: KCL 20MEQ/.9 SOD CHL 1,000 ML IV SCH (11:30)
[2022-05-02] MEDS: LEVOFLOXACIN 500MG/D5W 100ML 100 ML IV SCH (13:13)
[2022-05-02] MEDS: KETOROLAC TROMETHAMINE 30 MG/ML VIAL IM PRN (23:22)
[2022-05-02] MEDS: NICOTINE 21 MG/EA PATCH TOP PRN (23:31)
[2022-05-03] VITALS (8 sets, daily range): BP systolic 107–124; BP diastolic 57–78
[2022-05-03] MEDS: KCL 20MEQ/.9 SOD CHL 1,000 ML IV SCH ×2 (00:24→12:56)
[2022-05-03] MEDS: ALBUTEROL/IPRATROPIUM 3 ML NEB NEB SCH ×4 (01:00→19:00)
[2022-05-03 05:22] LABS: ANION GAP 16.1 mmol/L (8-16); CALCIUM 8.2 mg/dL (8.4-10.2); CREATININE, SERUM 0.82 mg/dL (0.57-1.11); POTASSIUM 3.1 mmol/L (3.5-5.1)
[2022-05-03] MEDS: FLUTICASONE/SALMETEROL 115/21 12 GM AERO IH SCH ×2 (07:10→20:20)
[2022-05-03] MEDS: BISACODYL 10 MG SUPP PR SCH (10:11)
[2022-05-03] MEDS: LEVOFLOXACIN 500MG/D5W 100ML 100 ML IV SCH (13:08)
[2022-05-03] MEDS ORDERED: POTASSIUM CHLORIDE 10MEQ EA PO NR (20:00)
[2022-05-03] MEDS: NICOTINE 21 MG/EA PATCH TOP PRN (21:30)
[2022-05-03] MEDS: KETOROLAC TROMETHAMINE 30 MG/ML VIAL IM PRN (23:45)
[2022-05-04] VITALS: BP 135/74
[2022-05-04] MEDS: ALBUTEROL/IPRATROPIUM 3 ML NEB NEB SCH ×2 (01:00→07:12)
[2022-05-04 04:00] VITALS: BP 114/58
[2022-05-04 06:19] LABS: ANION GAP 14.4 mmol/L (8-16); CREATININE, SERUM 0.79 mg/dL (0.57-1.11); POTASSIUM 3.4 mmol/L (3.5-5.1)
[2022-05-04] MEDS: FLUTICASONE/SALMETEROL 115/21 12 GM AERO IH SCH (07:12)
[2022-05-04 08:50] VITALS: BP 120/74
[2022-05-04 10:19] VITALS: BP 120/74
[2022-05-04] MEDS ORDERED: POTASSIUM CHLORIDE 10MEQ EA PO ONE (10:30)
[2022-05-04 12:09] VITALS: BP 110/72
[2022-05-04] MEDS: LEVOFLOXACIN 500MG/D5W 100ML 100 ML IV SCH (12:17)
[2022-05-04] MEDS ORDERED: SODIUM CHLORIDE 0.9% 250ML 250 ML ONE (12:36)
[2022-05-04] MEDS ORDERED: ONDANSETRON HCL 4 MG ORAL DISINTEGRATING TAB SL PRN (12:45)
[2022-05-05] MEDS ORDERED: LEVOFLOXACIN 500 MG TAB PO SCH (12:30)
== END 2022-05-04 14:25 | disposition home or self-care (01) | DRG 389 ==
LOC: ER 18:53 → ERHOLD 21:47 → MED/SURG2 23:07
PROVIDERS: ADMIT Internal Medicine; ATTEND Internal Medicine
DX: K56.52 Intestinal adhesions [bands] with complete obstruction (principal); Z68.41 Body mass index [BMI] 40.0-44.9, adult; E87.6 Hypokalemia; I10 Essential (primary) hypertension; J44.9 Chronic obstructive pulmonary disease, unspecified; E78.00 Pure hypercholesterolemia, unspecified; F32.A Depression, unspecified; E66.01 Morbid (severe) obesity due to excess calories; Z20.822 Contact with and (suspected) exposure to COVID-19
CPT/HCPCS: 36415; 74018; 74022; 74177; 80048; 80053; 81001; 82550; 82553; 83690; 83735; 84132; 84484; 85025; 93005; 94640; 94664; 94799; 96361; 99251; 99284; J0500; J1885; J1956; J2270; J2405; J3480; J7030; J7050; Q9967

== ENCOUNTER 2023-12-24 15:42 | Inpatient (IN) | payer MEDICARE, OTHER ==
[~2023-12-24] VITALS: Ht 152.4 cm; Wt 98.6 kg
[~2023-12-24 15:42] MED LIST changes: +ASPIRIN81 MG PO; +CELEBREX200 MG PO; +CIPRO500 MG PO; +DICYCLOMINE HCL20 MG PO; +OMEPRAZOLE40 MG PO; +OXYBUTYNIN CHLOR5 MG PO; +PEPCID20 MG PO; +PRAVASTATIN SOD40 MG PO; +QUETIAPINE FUMA50 MG PO; +TRELEGY ELLIPT1 EACH; +ULTRAM 50MG50 MG PO
[2023-12-24 16:31] LABS: BASOPHILS # (AUTO) 0.1 (0.0-0.1); BASOPHILS % 0.6 % (0.0-1.0); EOSINOPHILS # (AUTO) 0.2 (0.0-0.4); EOSINOPHILS % 2.1 % (0.0-6.0); HEMATOCRIT 40.3 % (34.2-44.1); HEMOGLOBIN 13.4 g/dL (12.0-16.0); LYMPHOCYTES # (AUTO) 2.5 (1.0-3.2); LYMPHOCYTES % 24.1 % (18.0-39.1); MEAN CORPUSCULAR HEMOGLOBIN 30.4 pg (28-32); MEAN CORPUSCULAR HGB CONC 33.3 g/dL (31-35); MEAN CORPUSCULAR VOLUME 91.4 fL (81-99); MONOCYTES # (AUTO) 0.9 (0.2-0.8); MONOCYTES % 8.8 % (4.4-11.3); NEUTROPHILS # (AUTO) 6.6 (2.1-6.9); PLATELET COUNT 206 x10e3/uL (140-360); RED BLOOD COUNT 4.41 x10e6/uL (3.6-5.1); WHITE BLOOD COUNT 10.27 x10e3/uL (4.8-10.8)
[2023-12-24] MEDS: Morphine 4mg INJECTION 4 MG/ML INJ IV STA (16:37)
[2023-12-24] MEDS: SODIUM CHLORIDE 0.9% 1000ML 1,000 ML IV STA (16:37)
[2023-12-24] MEDS: ONDANSETRON HCL INJ 2MG/ML 2ML 2 MG/ML VIAL IV STA (16:37)
[2023-12-24 16:49] LABS: ALANINE AMINOTRANSFERASE 32 IU/L (0-55); ALBUMIN 3.7 g/dL (3.5-5.0); ALBUMIN/GLOBULIN RATIO 1.1 (0.8-2.0); ALKALINE PHOSPHATASE 59 IU/L (40-150); ANION GAP 15.7 mmol/L (8-16); BILIRUBIN,TOTAL 0.4 mg/dL (0.2-1.2); BLOOD UREA NITROGEN 10 mg/dL (7-26); BUN/CREATININE RATIO 10 (6-25); CALCIUM 9.5 mg/dL (8.4-10.2); CARBON DIOXIDE 26 mmol/L (22-29); CHLORIDE 100 mmol/L (98-107); CREATINE KINASE 96 IU/L (29-168); EST GLOMERULAR FILTRATION RATE 64 ML/MIN (>=60); GLUCOSE 93 mg/dL (74-118); LIPASE 88 U/L (8-78); POTASSIUM 3.7 mmol/L (3.5-5.1); SODIUM 138 mmol/L (136-145); TOTAL PROTEIN 7.1 g/dL (6.5-8.1)
[2023-12-24 16:56] LABS: TROPONIN I < 0.001 ng/mL (0-0.300)
[2023-12-24 17:12] LABS: BILIRUBIN,URINE NEGATIVE (NEGATIVE); CLARITY,URINE CLEAR (CLEAR); COLOR,URINE YELLOW (YELLOW); GLUCOSE, URINE NEGATIVE (NEGATIVE); KETONES,URINE NEGATIVE (NEGATIVE); LEUKOCYTE ESTERASE ,URINE NEGATIVE (NEGATIVE); NITRITE,URINE POSITIVE (NEGATIVE); PH,URINE 6.5 (5 - 7); PROTEIN,URINE DIPSTICK NEGATIVE (NEGATIVE); URINE UROBILINOGEN 0.2 mg/dL (0.2 - 1)
[2023-12-24 17:13] LABS: PREGNANCY TEST, URINE NEGATIVE (NEGATIVE)
[2023-12-24 17:25] LABS: BACTERIA,URINE FEW /HPF; EPITHELIAL CELLS,URINE MODERATE /LPF; RBC,URINE 0-5 /HPF (0-5)
[2023-12-24] MEDS: DONNATAL/LIDOCAINE/MAALOX 30 ML SUSP PO PRN (18:05)
[2023-12-24] MEDS: Morphine 4mg INJECTION 4 MG/ML INJ IV ONE (19:52)
[2023-12-24] MEDS: SODIUM CHLORIDE 0.9% 1000ML 1,000 ML IV SCH (21:42)
[2023-12-24] MEDS: MEROPENEM 1 GM in SODIUM CHLORIDE 0.9% 100 ML IV SCH (21:42)
[2023-12-24 21:55] VITALS: BP 138/82; PULSE 80; RESP 20; TEMP 98.6; O2SAT 100
[2023-12-24 22:00] VITALS: BP 138/82; PULSE 80; RESP 20; TEMP 98.6; O2SAT 100
[2023-12-25] VITALS (7 sets, daily range): BP systolic 97–148; BP diastolic 62–83; PULSE 71–93; RESP 17–20; TEMP 98–98.4; O2SAT 92–95
[2023-12-25] MEDS: Morphine 4mg INJECTION 4 MG/ML INJ IV PRN (00:21)
[2023-12-25] MEDS: ONDANSETRON HCL INJ 2MG/ML 2ML 2 MG/ML VIAL IV PRN (00:21)
[2023-12-25] MEDS: BELLADONNA ALK/PHENOBARBITAL 5 ML UDC PO ONE (00:51)
[2023-12-25] MEDS: MAGNESIUM/ALUMINUM/SIMETHICONE 30 ML UDC PO ONE (00:52)
[2023-12-25] MEDS: LIDOCAINE VISC 2% SOLN 15 ML UDC PO ONE (00:52)
[2023-12-25 05:34] LABS: BASOPHILS % 0.5 % (0.0-1.0); EOSINOPHILS # (AUTO) 0.1 (0.0-0.4); EOSINOPHILS % 1.4 % (0.0-6.0); HEMATOCRIT 35.8 % (34.2-44.1); LYMPHOCYTES # (AUTO) 2.2 (1.0-3.2); LYMPHOCYTES % 28.3 % (18.0-39.1); MEAN CORPUSCULAR HEMOGLOBIN 30.4 pg (28-32); MEAN CORPUSCULAR HGB CONC 33.5 g/dL (31-35); MEAN CORPUSCULAR VOLUME 90.6 fL (81-99); MONOCYTES # (AUTO) 0.8 (0.2-0.8); MONOCYTES % 9.8 % (4.4-11.3); NEUTROPHILS # (AUTO) 4.7 (2.1-6.9); NEUTROPHILS % 59.6 % (38.7-80.0); PLATELET COUNT 178 x10e3/uL (140-360); RED BLOOD COUNT 3.95 x10e6/uL (3.6-5.1); RED CELL DISTRIBUTION WIDTH 12.9 % (11.7-14.4); WHITE BLOOD COUNT 7.82 x10e3/uL (4.8-10.8)
[2023-12-25 06:06] LABS: ALBUMIN 3.3 g/dL (3.5-5.0); ALBUMIN/GLOBULIN RATIO 1.1 (0.8-2.0); ANION GAP 13.5 mmol/L (8-16); BILIRUBIN,TOTAL 0.6 mg/dL (0.2-1.2); CALCIUM 8.3 mg/dL (8.4-10.2); CREATININE, SERUM 0.89 mg/dL (0.57-1.11); POTASSIUM 3.5 mmol/L (3.5-5.1); TOTAL PROTEIN 6.2 g/dL (6.5-8.1)
[2023-12-25] MEDS: HYDROMORPHONE 1MG/1ML INJ IV PRN (08:44)
[2023-12-25] MEDS ORDERED: GADOBENATE DIMEGLUMINE 0 ML IV ONE (09:37)
[2023-12-25] MEDS: LORAZEPAM INJ 2 MG/ML VIAL IV ONE (09:47)
[2023-12-25] MEDS ORDERED: SODIUM CHLORIDE 0.9% 100 ML ONE (20:23)
[2023-12-26] VITALS (10 sets, daily range): BP systolic 115–130; BP diastolic 65–79; PULSE 63–99; RESP 17–20; TEMP 96.5–101.3; O2SAT 95–100
[2023-12-26 05:47] LABS: BASOPHILS % 0.4 % (0.0-1.0); EOSINOPHILS # (AUTO) 0.1 (0.0-0.4); EOSINOPHILS % 1.5 % (0.0-6.0); HEMATOCRIT 32.6 % (34.2-44.1); HEMOGLOBIN 10.8 g/dL (12.0-16.0); LYMPHOCYTES # (AUTO) 2.1 (1.0-3.2); LYMPHOCYTES % 25.6 % (18.0-39.1); MEAN CORPUSCULAR HEMOGLOBIN 30.7 pg (28-32); MEAN CORPUSCULAR HGB CONC 33.1 g/dL (31-35); MEAN CORPUSCULAR VOLUME 92.6 fL (81-99); MONOCYTES # (AUTO) 0.7 (0.2-0.8); NEUTROPHILS # (AUTO) 5.2 (2.1-6.9); NEUTROPHILS % 63.3 % (38.7-80.0); PLATELET COUNT 152 x10e3/uL (140-360); RED BLOOD COUNT 3.52 x10e6/uL (3.6-5.1); RED CELL DISTRIBUTION WIDTH 13.2 % (11.7-14.4); WHITE BLOOD COUNT 8.23 x10e3/uL (4.8-10.8)
[2023-12-26 06:27] LABS: ALBUMIN 3.2 g/dL (3.5-5.0); ALBUMIN/GLOBULIN RATIO 1.1 (0.8-2.0); ANION GAP 12.6 mmol/L (8-16); BILIRUBIN,TOTAL 0.6 mg/dL (0.2-1.2); CREATININE, SERUM 0.94 mg/dL (0.57-1.11); POTASSIUM 3.6 mmol/L (3.5-5.1)
[2023-12-26] MEDS ORDERED: ALBUTEROL/IPRATROPIUM 3 ML NEB NEB PRN (09:30)
[2023-12-26] MEDS: ACETAMINOPHEN 325 MG TAB PO PRN (09:45)
[2023-12-26] MEDS: ALBUTEROL/IPRATROPIUM 3 ML NEB NEB SCH (14:26)
[2023-12-26] MEDS: ENOXAPARIN SOD INJ 40 MG/0.4 ML SYR SC SCH (16:59)
[2023-12-26] MEDS: QUETIAPINE FUMARATE 25 MG TAB PO SCH (21:47)
[2023-12-27] VITALS (12 sets, daily range): BP systolic 111–137; BP diastolic 62–87; PULSE 74–84; RESP 16–21; TEMP 98–98.9; O2SAT 95–100
[2023-12-27] MEDS: FLUOXETINE HCL 20 MG CAP PO SCH (10:47)
[2023-12-27] MEDS ORDERED: FENTANYL CITRATE/PF 100MCG/2 ML INJ ONE (15:18)
[2023-12-28 01:49] VITALS: PULSE 74; RESP 18; O2SAT 96
[2023-12-28 04:56] VITALS: BP 119/74; PULSE 65; RESP 17; TEMP 98.5; O2SAT 99
[2023-12-28 07:10] LABS: BASOPHILS % 0.5 % (0.0-1.0); EOSINOPHILS # (AUTO) 0.2 (0.0-0.4); EOSINOPHILS % 3.3 % (0.0-6.0); HEMATOCRIT 33.7 % (34.2-44.1); HEMOGLOBIN 11.3 g/dL (12.0-16.0); LYMPHOCYTES # (AUTO) 1.9 (1.0-3.2); LYMPHOCYTES % 32.5 % (18.0-39.1); MEAN CORPUSCULAR HEMOGLOBIN 30.5 pg (28-32); MEAN CORPUSCULAR HGB CONC 33.5 g/dL (31-35); MEAN CORPUSCULAR VOLUME 91.1 fL (81-99); MONOCYTES # (AUTO) 0.5 (0.2-0.8); MONOCYTES % 9.3 % (4.4-11.3); NEUTROPHILS # (AUTO) 3.2 (2.1-6.9); NEUTROPHILS % 54.1 % (38.7-80.0); PLATELET COUNT 131 x10e3/uL (140-360); RED CELL DISTRIBUTION WIDTH 12.8 % (11.7-14.4); WHITE BLOOD COUNT 5.82 x10e3/uL (4.8-10.8)
[2023-12-28 07:14] VITALS: PULSE 76; RESP 18; O2SAT 94
[2023-12-28 07:58] LABS: ANION GAP 12.3 mmol/L (8-16); CALCIUM 8.4 mg/dL (8.4-10.2); CREATININE, SERUM 0.76 mg/dL (0.57-1.11)
[2023-12-28 08:00] LABS: POTASSIUM 3.3 mmol/L (3.5-5.1)
[2023-12-28 08:23] VITALS: BP 122/68; PULSE 74; RESP 18; TEMP 98.2; O2SAT 100
[2023-12-28 08:45] VITALS: BP 122/68; PULSE 74; RESP 18; TEMP 98.2; O2SAT 100
[2023-12-28] MEDS ORDERED: LYRICA50 MG PO ×2 (11:31)
[2023-12-28] MEDS ORDERED: ONDANSETRON ODT4 MG PO (11:31)
[2023-12-28] MEDS ORDERED: [UNRECOGNIZED DRUG - REMARK] PO (11:33)
[2023-12-28 11:35] VITALS: BP 132/88; PULSE 77; RESP 20; TEMP 98.4; O2SAT 98
[2023-12-28] MEDS: POTASSIUM CHLORIDE 10MEQ EA PO ONE (11:57)
== END 2023-12-28 13:34 | disposition home or self-care (01) | DRG 439 ==
LOC: ER 16:04 → ERHOLD 20:03 → MED/SURG 21:58 → MED/SURG2 12-25 17:19
PROVIDERS: ADMIT Internal Medicine; ATTEND Internal Medicine
PROC: 0DB68ZX Excision of Stomach, Via Natural or Artificial Opening Endoscopic, Diagnostic (ICD-10-PCS; principal; 2023-12-27 08:03)
DX: K85.20 Alcohol induced acute pancreatitis without necrosis or infection (principal); E44.0 Moderate protein-calorie malnutrition; Z68.41 Body mass index [BMI] 40.0-44.9, adult; F10.21 Alcohol dependence, in remission; I10 Essential (primary) hypertension; Z11.52 Encounter for screening for COVID-19; R50.9 Fever, unspecified; K21.00 Gastro-esophageal reflux disease with esophagitis, without bleeding; K29.70 Gastritis, unspecified, without bleeding; E78.5 Hyperlipidemia, unspecified; E87.8 Other disorders of electrolyte and fluid balance, not elsewhere classified; J44.9 Chronic obstructive pulmonary disease, unspecified; Z96.649 Presence of unspecified artificial hip joint; Z96.659 Presence of unspecified artificial knee joint; E66.9 Obesity, unspecified; Z87.891 Personal history of nicotine dependence; Z88.0 Allergy status to penicillin; Z79.899 Other long term (current) drug therapy
CPT/HCPCS: 36415; 43239; 74174; 74181; 80048; 80053; 81001; 81025; 82550; 83690; 84478; 84484; 85025; 86301; 88305; 88312; 88342; 93005; 94799; 99284; J1170; J1650; J2060; J2185; J2270; J2405; J7030; J7050; U0002

== ENCOUNTER 2024-04-29 08:20 | Inpatient (IN) | payer MEDICARE, OTHER ==
[2024-04-29] VITALS (9 sets, daily range): BP systolic 144–154; BP diastolic 87–94; PULSE 59–71; RESP 16–20; TEMP 97.9–208.2; O2SAT 98
[~2024-04-29] VITALS: Ht 152.4 cm; Wt 92.5 kg
[~2024-04-29 08:20] MED LIST changes: +LYRICA50 MG PO; +MULTI-VITAMIN1 EACH PO; +PANTOPRAZOLE SO20 MG PO; +[UNRECOGNIZED DRUG - REMARK] PO
[2024-04-29 09:09] LABS: BASOPHILS % 0.6 % (0.0-1.0); EOSINOPHILS # (AUTO) 0.2 (0.0-0.4); EOSINOPHILS % 3.1 % (0.0-6.0); HEMATOCRIT 39.1 % (34.2-44.1); HEMOGLOBIN 12.8 g/dL (12.0-16.0); LYMPHOCYTES # (AUTO) 2.3 (1.0-3.2); LYMPHOCYTES % 35.2 % (18.0-39.1); MEAN CORPUSCULAR HEMOGLOBIN 30.1 pg (28-32); MEAN CORPUSCULAR HGB CONC 32.7 g/dL (31-35); MONOCYTES # (AUTO) 0.6 (0.2-0.8); MONOCYTES % 9.6 % (4.4-11.3); NEUTROPHILS # (AUTO) 3.3 (2.1-6.9); NEUTROPHILS % 51.2 % (38.7-80.0); PLATELET COUNT 142 x10e3/uL (140-360); RED BLOOD COUNT 4.25 x10e6/uL (3.6-5.1); RED CELL DISTRIBUTION WIDTH 13.5 % (11.7-14.4); WHITE BLOOD COUNT 6.47 x10e3/uL (4.8-10.8)
[2024-04-29] MEDS: SODIUM CHLORIDE 0.9% 1000ML 1,000 ML IV STA (09:16)
[2024-04-29] MEDS: ONDANSETRON HCL INJ 2MG/ML 2ML 2 MG/ML VIAL IV STA (09:16)
[2024-04-29] MEDS: DICYCLOMINE HCL 20 MG/2 ML VIAL IM ONE (09:17)
[2024-04-29 09:19] LABS: INR 0.93; PROTHROMBIN TIME 12.9 seconds (11.9-14.5)
[2024-04-29 09:20] LABS: PARTIAL THROMBOPLASTIN TIME 25.9 seconds (23.8-35.5)
[2024-04-29] MEDS ORDERED: IOPAMIDOL 370 MG/ML 100 ML INFUS..BTL INJ ONE (09:27)
[2024-04-29 09:30] LABS: ALBUMIN 3.8 g/dL (3.5-5.0); ALBUMIN/GLOBULIN RATIO 1.3 (0.8-2.0); ANION GAP 12.9 mmol/L (8-16); BILIRUBIN,TOTAL 0.9 mg/dL (0.2-1.2); CALCIUM 9.5 mg/dL (8.4-10.2); CREATININE, SERUM 0.88 mg/dL (0.57-1.11); POTASSIUM 3.9 mmol/L (3.5-5.1); TOTAL PROTEIN 6.8 g/dL (6.5-8.1)
[2024-04-29 10:24] LABS: TROPONIN I 0.01 ng/mL (0-0.300)
[2024-04-29 10:33] LABS: BILIRUBIN,URINE NEGATIVE (NEGATIVE); CLARITY,URINE CLEAR (CLEAR); COLOR,URINE YELLOW (YELLOW); GLUCOSE, URINE NEGATIVE (NEGATIVE); KETONES,URINE NEGATIVE (NEGATIVE); LEUKOCYTE ESTERASE ,URINE NEGATIVE (NEGATIVE); NITRITE,URINE NEGATIVE (NEGATIVE); PH,URINE 6 (5 - 7); PROTEIN,URINE DIPSTICK NEGATIVE (NEGATIVE); URINE UROBILINOGEN 0.2 mg/dL (0.2 - 1)
[2024-04-29 10:45] LABS: BACTERIA,URINE FEW /HPF; EPITHELIAL CELLS,URINE FEW /LPF; WBC,URINE (MAN) 0-5 /HPF (0-5)
[2024-04-29] MEDS: HYDROMORPHONE 1MG/1ML INJ IV STA (11:10)
[2024-04-29] MEDS: LORAZEPAM INJ 2 MG/ML VIAL IV ONE (12:23)
[2024-04-29] MEDS: SODIUM CHLORIDE 0.9% 1000ML 1,000 ML IV SCH (13:25)
[2024-04-29] MEDS ORDERED: ZENPEP PO (14:37)
[2024-04-29] MEDS ORDERED: PANTOPRAZOLE SO40 MG PO (14:37)
[2024-04-29] MEDS ORDERED: ADVIL200 M1 PO (14:38)
[2024-04-29] MEDS: HYDROMORPHONE 1MG/1ML INJ IV PRN (15:29)
[2024-04-29] MEDS: ONDANSETRON HCL INJ 2MG/ML 2ML 2 MG/ML VIAL IV PRN (20:27)
[2024-04-29] MEDS: METOCLOPRAMIDE HCL 10 MG/2ML VIAL IV SCH (23:20)
[2024-04-30] VITALS: BP 136/96; PULSE 61; RESP 20; TEMP 98.9; O2SAT 96
[2024-04-30 04:00] VITALS: BP_SYST 123; BP_SYST 140; BP_DIAS 74; BP_DIAS 82; PULSE 59; PULSE 61; RESP 18; RESP 20; TEMP 100; TEMP 97.7; O2SAT 98
[2024-04-30 05:54] LABS: BASOPHILS % 0.4 % (0.0-1.0); EOSINOPHILS # (AUTO) 0.2 (0.0-0.4); EOSINOPHILS % 3.1 % (0.0-6.0); HEMATOCRIT 36.8 % (34.2-44.1); HEMOGLOBIN 11.4 g/dL (12.0-16.0); LYMPHOCYTES # (AUTO) 2.1 (1.0-3.2); LYMPHOCYTES % 39.7 % (18.0-39.1); MEAN CORPUSCULAR HEMOGLOBIN 29.9 pg (28-32); MEAN CORPUSCULAR VOLUME 96.6 fL (81-99); MONOCYTES # (AUTO) 0.6 (0.2-0.8); MONOCYTES % 10.5 % (4.4-11.3); NEUTROPHILS # (AUTO) 2.4 (2.1-6.9); NEUTROPHILS % 46.1 % (38.7-80.0); PLATELET COUNT 114 x10e3/uL (140-360); RED BLOOD COUNT 3.81 x10e6/uL (3.6-5.1); RED CELL DISTRIBUTION WIDTH 13.3 % (11.7-14.4); WHITE BLOOD COUNT 5.24 x10e3/uL (4.8-10.8)
[2024-04-30 06:34] LABS: ALBUMIN 3.5 g/dL (3.5-5.0); ALBUMIN/GLOBULIN RATIO 1.2 (0.8-2.0); ANION GAP 13.9 mmol/L (8-16); BILIRUBIN,TOTAL 0.7 mg/dL (0.2-1.2); CALCIUM 8.3 mg/dL (8.4-10.2); CREATININE, SERUM 0.87 mg/dL (0.57-1.11); POTASSIUM 3.9 mmol/L (3.5-5.1); TOTAL PROTEIN 6.4 g/dL (6.5-8.1)
[2024-04-30] MEDS: HYDROMORPHONE 1MG/1ML INJ IV PRN (08:43)
[2024-04-30] MEDS: METRONIDAZOLE 500MG/NS 100ML 100 ML IV SCH (08:44)
[2024-04-30] MEDS ORDERED: HYDRALAZINE HCL 20 MG/ML VIAL IV PRN (09:30)
[2024-04-30 09:46] VITALS: BP 123/74; PULSE 59; RESP 18; TEMP 97.7; O2SAT 98
[2024-04-30 10:11] VITALS: BP 137/85; PULSE 58; RESP 15; TEMP 98.5; O2SAT 98
[2024-04-30] MEDS: PROTEASE PO SCH (11:44)
[2024-04-30] MEDS: LIPASE PO SCH (11:44)
[2024-04-30] MEDS: [UNRECOGNIZED DRUG - OTHER] PO SCH (11:44)
[2024-04-30] MEDS: AMYLASE PO SCH (11:44)
[2024-04-30 20:00] VITALS: BP 119/74; PULSE 57; RESP 20; TEMP 97.9; O2SAT 97
[2024-04-30] MEDS: QUETIAPINE FUMARATE 25 MG TAB PO SCH (20:55)
[2024-04-30 21:00] VITALS: BP 119/74; PULSE 57; RESP 20; TEMP 97.9; O2SAT 97
[2024-05-01] VITALS (8 sets, daily range): BP systolic 109–156; BP diastolic 70–98; PULSE 62–83; RESP 17–19; TEMP 97.7–99.4; O2SAT 94–100
[2024-05-01 07:13] LABS: ALBUMIN 3.3 g/dL (3.5-5.0); ALBUMIN/GLOBULIN RATIO 1.4 (0.8-2.0); ANION GAP 9.6 mmol/L (8-16); BILIRUBIN,TOTAL 0.5 mg/dL (0.2-1.2); CALCIUM 7.9 mg/dL (8.4-10.2); CREATININE, SERUM 0.85 mg/dL (0.57-1.11); PHOSPHORUS 3.6 MG/DL (2.3-4.7); POTASSIUM 3.6 mmol/L (3.5-5.1); TOTAL PROTEIN 5.7 g/dL (6.5-8.1)
[2024-05-01] MEDS: OXYBUTYNIN CHLORIDE 5 MG TAB PO SCH (08:35)
[2024-05-01] MEDS: FLUOXETINE HCL 20 MG CAP PO SCH (08:36)
[2024-05-01] MEDS: LOSARTAN POTASSIUM 25 MG TAB PO SCH (08:36)
[2024-05-01] MEDS: CYANOCOBALAMIN INJ 1,000 MCG/ML VIAL IM SCH (10:00)
[2024-05-02] VITALS: BP 140/62; PULSE 70; RESP 18; TEMP 97.1; O2SAT 98
[2024-05-02 04:00] VITALS: BP 118/73; PULSE 70; RESP 18; TEMP 98.2; O2SAT 96
[2024-05-02 08:34] VITALS: BP 134/84; PULSE 53; RESP 18; TEMP 97.8; O2SAT 100
[2024-05-02 08:41] VITALS: BP 134/84; PULSE 53; RESP 18; TEMP 97.8; O2SAT 99
[2024-05-02] MEDS ORDERED: POTASSIUM CHLORIDE 20 MEQ TAB CR PO STA (09:19)
[2024-05-02 11:00] VITALS: BP 126/84; PULSE 70; RESP 20; TEMP 98.6; O2SAT 99
== END 2024-05-02 11:35 | disposition home or self-care (01) | DRG 439 ==
LOC: ER 08:28 → ERHOLD 11:45 → MED/SURG3 14:05
PROVIDERS: ADMIT Internal Medicine; ATTEND Internal Medicine
DX: K85.11 Biliary acute pancreatitis with uninfected necrosis (principal); K86.3 Pseudocyst of pancreas; K80.20 Calculus of gallbladder without cholecystitis without obstruction; E87.8 Other disorders of electrolyte and fluid balance, not elsewhere classified; K76.0 Fatty (change of) liver, not elsewhere classified; K21.9 Gastro-esophageal reflux disease without esophagitis; I10 Essential (primary) hypertension; J44.9 Chronic obstructive pulmonary disease, unspecified; Z87.891 Personal history of nicotine dependence; F10.21 Alcohol dependence, in remission; Z53.29 Procedure and treatment not carried out because of patient's decision for other reasons; E66.01 Morbid (severe) obesity due to excess calories; Z71.3 Dietary counseling and surveillance; Z68.39 Body mass index [BMI] 39.0-39.9, adult; F32.9 Major depressive disorder, single episode, unspecified; F41.9 Anxiety disorder, unspecified; Z96.653 Presence of artificial knee joint, bilateral; Z79.899 Other long term (current) drug therapy
CPT/HCPCS: 36415; 71045; 74177; 74181; 76705; 80053; 81001; 82550; 82607; 83690; 83735; 84100; 84484; 85025; 85610; 85730; 87086; 93005; 94760; 99284; J1170; J2060; J2405; J2470; J2765; J3420; J7030; Q9967

== ENCOUNTER 2024-07-17 12:17 | Emergency (ER) | payer MEDICARE, OTHER ==
[~2024-07-17] VITALS: Ht 152.4 cm; Wt 92.5 kg
[~2024-07-17 12:17] MED LIST changes: +ADVIL200 M1 PO; +PANTOPRAZOLE SO40 MG PO; +ZENPEP PO
[2024-07-17 12:41] VITALS: PULSE 88; RESP 17; TEMP 97.5; O2SAT 99
[2024-07-17] MEDS: TRAMADOL HCL 50 MG TAB PO ONE (13:02)
[2024-07-17] MEDS ORDERED: ULTRAM 50MG50 MG PO (15:03)
== END 2024-07-17 15:10 | disposition home or self-care (01) ==
LOC: ER 12:28
DX: S22.31XA Fracture of one rib, right side, initial encounter for closed fracture (principal); W01.0XXA Fall on same level from slipping, tripping and stumbling without subsequent striking against object, initial encounter; Y93.01 Activity, walking, marching and hiking; Y92.89 Other specified places as the place of occurrence of the external cause; I10 Essential (primary) hypertension; J44.9 Chronic obstructive pulmonary disease, unspecified; K21.9 Gastro-esophageal reflux disease without esophagitis; F32.A Depression, unspecified; Z96.653 Presence of artificial knee joint, bilateral; F17.210 Nicotine dependence, cigarettes, uncomplicated
CPT/HCPCS: 71101; 72100; 99283

== ENCOUNTER 2024-08-18 01:08 | Emergency (ER) | payer MEDICARE, OTHER ==
[~2024-08-18] VITALS: Ht 152.4 cm; Wt 92.5 kg
[2024-08-18 01:18] VITALS: PULSE 88; RESP 20; TEMP 98.5
[2024-08-18 01:34] LABS: BASOPHILS # (AUTO) 0.1 (0.0-0.1); BASOPHILS % 0.9 % (0.0-1.0); EOSINOPHILS # (AUTO) 0.1 (0.0-0.4); EOSINOPHILS % 2.4 % (0.0-6.0); HEMOGLOBIN 11.9 g/dL (12.0-16.0); LYMPHOCYTES # (AUTO) 3.3 (1.0-3.2); LYMPHOCYTES % 56.3 % (18.0-39.1); MEAN CORPUSCULAR HEMOGLOBIN 30.9 pg (28-32); MEAN CORPUSCULAR HGB CONC 32.2 g/dL (31-35); MEAN CORPUSCULAR VOLUME 96.1 fL (81-99); MONOCYTES # (AUTO) 0.5 (0.2-0.8); MONOCYTES % 8.8 % (4.4-11.3); NEUTROPHILS # (AUTO) 1.9 (2.1-6.9); NEUTROPHILS % 31.4 % (38.7-80.0); PLATELET COUNT 171 x10e3/uL (140-360); RED BLOOD COUNT 3.85 x10e6/uL (3.6-5.1); RED CELL DISTRIBUTION WIDTH 12.4 % (11.7-14.4); WHITE BLOOD COUNT 5.88 x10e3/uL (4.8-10.8)
[2024-08-18 01:47] LABS: BILIRUBIN,URINE NEGATIVE (NEGATIVE); CLARITY,URINE CLEAR (CLEAR); GLUCOSE, URINE NEGATIVE (NEGATIVE); KETONES,URINE NEGATIVE (NEGATIVE); LEUKOCYTE ESTERASE ,URINE NEGATIVE (NEGATIVE); NITRITE,URINE NEGATIVE (NEGATIVE); PH,URINE 5.5 (5 - 7); PROTEIN,URINE DIPSTICK NEGATIVE (NEGATIVE); URINE UROBILINOGEN 0.2 mg/dL (0.2 - 1)
[2024-08-18 01:49] LABS: BACTERIA,URINE FEW /HPF; COLOR,URINE STRAW (YELLOW); EPITHELIAL CELLS,URINE MODERATE /LPF; RBC,URINE 0-5 /HPF (0-5); WBC,URINE (MAN) 0-5 /HPF (0-5)
[2024-08-18 01:53] LABS: ETHANOL 231.4 mg/dL (0.0-10.0)
[2024-08-18 01:54] LABS: ALBUMIN 3.7 g/dL (3.5-5.0); ALBUMIN/GLOBULIN RATIO 1.2 (0.8-2.0); ANION GAP 17.4 mmol/L (8-16); BILIRUBIN,TOTAL 0.1 mg/dL (0.2-1.2); CALCIUM 9.1 mg/dL (8.4-10.2); CREATININE, SERUM 0.85 mg/dL (0.57-1.11); TOTAL PROTEIN 6.9 g/dL (6.5-8.1)
[2024-08-18 01:56] LABS: POTASSIUM 3.4 mmol/L (3.5-5.1)
[2024-08-18] MEDS ORDERED: IOPAMIDOL 370 MG/ML 100 ML INFUS..BTL INJ ONE (02:05)
[2024-08-18] MEDS: KETOROLAC TROMETHAMINE 30 MG/ML VIAL IV STA (02:51)
[2024-08-18 03:42] VITALS: BP 131/83; PULSE 86; RESP 18; TEMP 98.5; O2SAT 95
== END 2024-08-18 03:45 | disposition home or self-care (01) ==
LOC: ER 01:11
DX: R10.31 Right lower quadrant pain (principal); F10.129 Alcohol abuse with intoxication, unspecified; R11.2 Nausea with vomiting, unspecified; I10 Essential (primary) hypertension; J44.9 Chronic obstructive pulmonary disease, unspecified; K21.9 Gastro-esophageal reflux disease without esophagitis; F32.A Depression, unspecified; Z96.653 Presence of artificial knee joint, bilateral
CPT/HCPCS: 36415; 74177; 80053; 80320; 81001; 83690; 85025; 99284; J1885; Q9967

== ENCOUNTER 2024-09-23 17:00 | Emergency (ER) | payer MEDICARE, OTHER ==
[~2024-09-23] VITALS: Ht 152.4 cm; Wt 92.5 kg
[2024-09-23 17:45] VITALS: RESP 16; TEMP 99.1
[2024-09-23 19:26] LABS: BASOPHILS % 0.6 % (0.0-1.0); EOSINOPHILS # (AUTO) 0.1 (0.0-0.4); EOSINOPHILS % 2.2 % (0.0-6.0); HEMATOCRIT 41.3 % (34.2-44.1); HEMOGLOBIN 13.1 g/dL (12.0-16.0); LYMPHOCYTES # (AUTO) 2.8 (1.0-3.2); LYMPHOCYTES % 42.3 % (18.0-39.1); MEAN CORPUSCULAR HEMOGLOBIN 31.1 pg (28-32); MEAN CORPUSCULAR HGB CONC 31.7 g/dL (31-35); MEAN CORPUSCULAR VOLUME 98.1 fL (81-99); MONOCYTES # (AUTO) 0.7 (0.2-0.8); MONOCYTES % 11.1 % (4.4-11.3); NEUTROPHILS # (AUTO) 2.8 (2.1-6.9); NEUTROPHILS % 43.6 % (38.7-80.0); PLATELET COUNT 148 x10e3/uL (140-360); RED BLOOD COUNT 4.21 x10e6/uL (3.6-5.1); RED CELL DISTRIBUTION WIDTH 12.4 % (11.7-14.4)
[2024-09-23 19:40] LABS: ALBUMIN/GLOBULIN RATIO 1.2 (0.8-2.0); ANION GAP 16.9 mmol/L (8-16); BILIRUBIN,TOTAL 0.4 mg/dL (0.2-1.2); CALCIUM 9.8 mg/dL (8.4-10.2); CREATININE, SERUM 0.85 mg/dL (0.57-1.11); POTASSIUM 3.9 mmol/L (3.5-5.1); TOTAL PROTEIN 7.4 g/dL (6.5-8.1)
[2024-09-23 21:31] VITALS: PULSE 64
[2024-09-23] MEDS ORDERED: ONDANSETRON ODT4 MG SL (21:52)
[2024-09-23] MEDS ORDERED: PANTOPRAZOLE SO40 MG PO (21:52)
[2024-09-23] MEDS ORDERED: DICYCLOMINE HCL20 MG PO (21:52)
[2024-09-23] MEDS: DICYCLOMINE HCL 20 MG/2 ML VIAL IM ONE (21:56)
[2024-09-23] MEDS: KETOROLAC TROMETHAMINE 30 MG/ML VIAL IV STA (21:56)
[2024-09-23 22:32] VITALS: BP 126/91; PULSE 66; O2SAT 97
== END 2024-09-23 22:34 | disposition home or self-care (01) ==
LOC: ER 21:37
DX: R10.11 Right upper quadrant pain (principal); K80.70 Calculus of gallbladder and bile duct without cholecystitis without obstruction; I10 Essential (primary) hypertension; J44.9 Chronic obstructive pulmonary disease, unspecified; K21.9 Gastro-esophageal reflux disease without esophagitis; F32.A Depression, unspecified; Z96.643 Presence of artificial hip joint, bilateral
CPT/HCPCS: 36415; 80053; 83690; 85025; 99283; J0500; J1885; J2470

== ENCOUNTER → 2024-10-01 | Day surgery (SDC) | payer MEDICARE, OTHER ==
[~2024-10-01] MED LIST changes: +ACETAMINOPHEN 1000 MG/100 ML 100 ML IV ONE; +DEXAMETHASONE SOD PHOS INJ 4 MG/ML SDV ONE; +FENTANYL CITRATE/PF 100MCG/2 ML INJ ONE; +KETOROLAC TROMETHAMINE 30 MG/ML VIAL ONE; +LIDOCAINE HCL 2% LOCAL INJ 5 ML SDV VIAL INJ ONE; +METOPROLOL TARTRATE INJ 1 MG/ML VIAL ONE; +ONDANSETRON HCL INJ 2MG/ML 2ML 2 MG/ML VIAL ONE; +ONDANSETRON ODT4 MG SL; +PROPOFOL IV EMULSION 10 MG/ML 20 ML VIAL ONE; +ROCURONIUM BROMIDE 1 ML IV ONE; +SUGAMMADEX SODIUM 200 MG/2 ML VIAL IV ONE
[2024-10-01] MEDS: LACTATED RINGER'S 1,000 ML ONE (12:13)
[2024-10-01] MEDS: LEVOFLOXACIN 500MG/D5W 100ML 100 ML IV ONE (12:14)
[2024-10-01] MEDS: HYDROCODONE/APAP 10MG-325MG TAB ONE (14:00)
[2024-10-01 14:30] VITALS: BP 149/96; PULSE 70; RESP 17; O2SAT 95
== END | disposition home or self-care (01) ==
LOC: OR 09:15
PROVIDERS: ATTEND Surgery
DX: K81.1 Chronic cholecystitis (principal); K82.8 Other specified diseases of gallbladder; Z87.19 Personal history of other diseases of the digestive system; E66.01 Morbid (severe) obesity due to excess calories; I10 Essential (primary) hypertension; J44.9 Chronic obstructive pulmonary disease, unspecified; K21.9 Gastro-esophageal reflux disease without esophagitis; F41.9 Anxiety disorder, unspecified; F32.A Depression, unspecified; Z88.0 Allergy status to penicillin; Z01.810 Encounter for preprocedural cardiovascular examination; Z01.818 Encounter for other preprocedural examination; Z79.899 Other long term (current) drug therapy; Z68.41 Body mass index [BMI] 40.0-44.9, adult
CPT/HCPCS: 47562; 71046; 88304; 93005; J0131; J1100; J1885; J1956; J2003; J2405; J2704; J3010; J7121; J0690

== ENCOUNTER 2024-10-20 18:16 | Inpatient (IN) | payer MEDICARE, OTHER ==
[~2024-10-20] VITALS: Ht 157.5 cm; Wt 100.7 kg
[~2024-10-20 18:16] MED LIST changes: -ACETAMINOPHEN 1000 MG/100 ML 100 ML IV ONE; -DEXAMETHASONE SOD PHOS INJ 4 MG/ML SDV ONE; -FENTANYL CITRATE/PF 100MCG/2 ML INJ ONE; -KETOROLAC TROMETHAMINE 30 MG/ML VIAL ONE; -LIDOCAINE HCL 2% LOCAL INJ 5 ML SDV VIAL INJ ONE; -METOPROLOL TARTRATE INJ 1 MG/ML VIAL ONE; -ONDANSETRON HCL INJ 2MG/ML 2ML 2 MG/ML VIAL ONE; -PROPOFOL IV EMULSION 10 MG/ML 20 ML VIAL ONE; -ROCURONIUM BROMIDE 1 ML IV ONE; -SUGAMMADEX SODIUM 200 MG/2 ML VIAL IV ONE
[2024-10-20 18:30] VITALS: TEMP 98.5
[2024-10-20 19:25] LABS: BASOPHILS # (AUTO) 0.1 (0.0-0.1); BASOPHILS % 0.5 % (0.0-1.0); EOSINOPHILS # (AUTO) 0.3 (0.0-0.4); HEMATOCRIT 40.6 % (34.2-44.1); HEMOGLOBIN 13.8 g/dL (12.0-16.0); LYMPHOCYTES # (AUTO) 2.9 (1.0-3.2); LYMPHOCYTES % 28.9 % (18.0-39.1); MEAN CORPUSCULAR HEMOGLOBIN 30.6 pg (28-32); MONOCYTES % 9.6 % (4.4-11.3); NEUTROPHILS # (AUTO) 5.9 (2.1-6.9); NEUTROPHILS % 57.6 % (38.7-80.0); PLATELET COUNT 197 x10e3/uL (140-360); RED BLOOD COUNT 4.51 x10e6/uL (3.6-5.1); RED CELL DISTRIBUTION WIDTH 12.7 % (11.7-14.4); WHITE BLOOD COUNT 10.17 x10e3/uL (4.8-10.8)
[2024-10-20 19:56] LABS: ALBUMIN 4.2 g/dL (3.5-5.0); ALBUMIN/GLOBULIN RATIO 1.3 (0.8-2.0); ANION GAP 17.9 mmol/L (8-16); BILIRUBIN,TOTAL 0.6 mg/dL (0.2-1.2); CALCIUM 9.6 mg/dL (8.4-10.2); CREATININE, SERUM 0.86 mg/dL (0.57-1.11); POTASSIUM 3.9 mmol/L (3.5-5.1); TOTAL PROTEIN 7.5 g/dL (6.5-8.1)
[2024-10-20 20:01] LABS: TROPONIN I 0.016 ng/mL (0-0.300)
[2024-10-20] MEDS: KETOROLAC TROMETHAMINE 30 MG/ML VIAL IV STA (20:01)
[2024-10-20] MEDS: SODIUM CHLORIDE 0.9% 1000ML 1,000 ML IV ONE (20:02)
[2024-10-20] MEDS: DICYCLOMINE HCL 20 MG/2 ML VIAL IM ONE (20:02)
[2024-10-20] MEDS: ONDANSETRON HCL INJ 2MG/ML 2ML 2 MG/ML VIAL IV STA (20:02)
[2024-10-20] MEDS ORDERED: IOPAMIDOL 370 MG/ML 100 ML INFUS..BTL INJ ONE (20:07)
[2024-10-20 22:29] VITALS: PULSE 74; RESP 18
[2024-10-20 22:30] VITALS: PULSE 74; RESP 18; O2SAT 100
[2024-10-20] MEDS ORDERED: HYDRALAZINE HCL 20 MG/ML VIAL IV PRN (22:30)
[2024-10-20 23:16] VITALS: BP 127/73; PULSE 70; RESP 20; TEMP 97.9; O2SAT 97
[2024-10-20] MEDS: Morphine 4mg INJECTION 4 MG/ML INJ IV PRN (23:46)
[2024-10-20] MEDS: SODIUM CHLORIDE 0.9% 1000ML 1,000 ML IV SCH (23:46)
[2024-10-20] MEDS: ONDANSETRON HCL INJ 2MG/ML 2ML 2 MG/ML VIAL IV PRN (23:46)
[2024-10-21] VITALS (12 sets, daily range): BP systolic 101–130; BP diastolic 57–89; PULSE 56–70; RESP 17–20; TEMP 97.7–98.1; O2SAT 93–100
[2024-10-21 07:02] LABS: BASOPHILS % 0.5 % (0.0-1.0); EOSINOPHILS # (AUTO) 0.4 (0.0-0.4); EOSINOPHILS % 4.8 % (0.0-6.0); HEMATOCRIT 36.7 % (34.2-44.1); HEMOGLOBIN 11.9 g/dL (12.0-16.0); LYMPHOCYTES # (AUTO) 2.9 (1.0-3.2); LYMPHOCYTES % 39.8 % (18.0-39.1); MEAN CORPUSCULAR HEMOGLOBIN 30.6 pg (28-32); MEAN CORPUSCULAR HGB CONC 32.4 g/dL (31-35); MEAN CORPUSCULAR VOLUME 94.3 fL (81-99); MONOCYTES # (AUTO) 0.7 (0.2-0.8); MONOCYTES % 9.5 % (4.4-11.3); NEUTROPHILS # (AUTO) 3.3 (2.1-6.9); NEUTROPHILS % 45.3 % (38.7-80.0); PLATELET COUNT 155 x10e3/uL (140-360); RED BLOOD COUNT 3.89 x10e6/uL (3.6-5.1); RED CELL DISTRIBUTION WIDTH 12.9 % (11.7-14.4); WHITE BLOOD COUNT 7.29 x10e3/uL (4.8-10.8)
[2024-10-21 07:20] LABS: ALBUMIN 3.4 g/dL (3.5-5.0); ALBUMIN/GLOBULIN RATIO 1.2 (0.8-2.0); ANION GAP 12.7 mmol/L (8-16); BILIRUBIN,TOTAL 0.7 mg/dL (0.2-1.2); CALCIUM 8.2 mg/dL (8.4-10.2); CREATININE, SERUM 0.87 mg/dL (0.57-1.11); POTASSIUM 3.7 mmol/L (3.5-5.1); TOTAL PROTEIN 6.2 g/dL (6.5-8.1)
[2024-10-21] MEDS: LIPASE PO SCH (07:30)
[2024-10-21] MEDS: [UNRECOGNIZED DRUG - OTHER] PO SCH (07:30)
[2024-10-21] MEDS ORDERED: METOPROLOL TARTRATE INJ 1 MG/ML VIAL IV PRN (07:30)
[2024-10-21] MEDS ORDERED: DOCUSATE SODIUM 100 MG CAP PO PRN (07:30)
[2024-10-21] MEDS: PROTEASE PO SCH (07:30)
[2024-10-21] MEDS: AMYLASE PO SCH (07:30)
[2024-10-21] MEDS ORDERED: ALBUTEROL/IPRATROPIUM 3 ML NEB NEB PRN (07:30)
[2024-10-21] MEDS: FLUOXETINE HCL 20 MG CAP PO SCH (09:00)
[2024-10-21] MEDS: METRONIDAZOLE 500MG/NS 100ML 100 ML IV SCH (11:48)
[2024-10-21] MEDS: DICYCLOMINE HCL 20 MG TAB PO PRN (17:13)
[2024-10-21] MEDS: ENOXAPARIN SOD INJ 40 MG/0.4 ML SYR SC SCH (17:14)
[2024-10-21] MEDS: QUETIAPINE FUMARATE 25 MG TAB PO SCH (20:45)
[2024-10-21] MEDS: ACETAMINOPHEN 325 MG TAB PO PRN (22:15)
[2024-10-22] VITALS (9 sets, daily range): BP systolic 98–135; BP diastolic 55–81; PULSE 58–67; RESP 16–20; TEMP 97.5–99.1; O2SAT 93–100
[2024-10-23] VITALS: BP 113/67; PULSE 63; RESP 20; TEMP 98.4; O2SAT 95
[2024-10-23 04:39] VITALS: BP 113/68; PULSE 62; RESP 20; TEMP 98.6; O2SAT 92
[2024-10-23 07:37] VITALS: PULSE 64; RESP 16; O2SAT 97
[2024-10-23 08:58] VITALS: BP 140/79; PULSE 60; RESP 18; TEMP 97.6; O2SAT 100
[2024-10-23 12:35] VITALS: BP 145/83; PULSE 68; RESP 20; TEMP 98; O2SAT 98
[2024-10-23 14:13] VITALS: PULSE 68; RESP 16; O2SAT 96
== END 2024-10-23 15:10 | disposition home or self-care (01) | DRG 439 ==
LOC: ER 18:35 → ERHOLD 22:20 → MED/SURG3 23:30 → OBSVTOIN 10-22 16:23
PROVIDERS: ADMIT Internal Medicine; ATTEND Internal Medicine
DX: K85.90 Acute pancreatitis without necrosis or infection, unspecified (principal); E87.20 Acidosis, unspecified; K86.2 Cyst of pancreas; E66.01 Morbid (severe) obesity due to excess calories; Z68.41 Body mass index [BMI] 40.0-44.9, adult; K86.1 Other chronic pancreatitis; J44.9 Chronic obstructive pulmonary disease, unspecified; E66.9 Obesity, unspecified; K76.89 Other specified diseases of liver; I10 Essential (primary) hypertension; K52.9 Noninfective gastroenteritis and colitis, unspecified; E86.0 Dehydration; K76.0 Fatty (change of) liver, not elsewhere classified; K21.9 Gastro-esophageal reflux disease without esophagitis; F32.A Depression, unspecified; F41.9 Anxiety disorder, unspecified; M54.9 Dorsalgia, unspecified; M19.90 Unspecified osteoarthritis, unspecified site; Z79.51 Long term (current) use of inhaled steroids; Z90.49 Acquired absence of other specified parts of digestive tract; Z86.16 Personal history of COVID-19; Z88.0 Allergy status to penicillin; Z87.891 Personal history of nicotine dependence
CPT/HCPCS: 36415; 74177; 74181; 80053; 83690; 84484; 85025; 93005; 94799; 99284; G0378; J0696; J1650; J1885; J2270; J2405; J2470; J7030; Q9967